=== PATIENT | male | born 1970 | race Caucasian/White ===

== ENCOUNTER 2018-01-08 12:53 | Inpatient (IN) | payer OTHER ==
[2018-01-08 14:25] VITALS: BMI 22.2
--- NOTE | 2018-01-08 14:49 | HP ---
COWS - Scale Resting Pulse: 0= MS 80 or Below Sweatin= Chills/Flushing Restless Observation: 3= Extraneous Movement Pupil Size: 0= Normal to Room Light Bone or Joint Aches: 4=Acute Joint/Muscle Pain Runny Nose/ Eye Tearin= Runny Nose/Eyes GI Upset > 30mins: 3= Vomiting/Diarrhea Tremor Observation: 1= Tremor [place], Not Seen Yawning Observation: 2= >3x During Session Anxiety or Irritability: 2=Irritable/Anxious Goose Flesh Skin: 0=Smooth Skin COWS Score: 18 CIWA Score - CIWA Score Nausea/Vomitin Muscle Tremors: 3 Anxiety: 4-Mod. Anxious/Guarded Agitation: 4-Moderately Restless Paroxysmal Sweats: 1-Minimal Palms Moist Orientation: 0-Oriented Tacttile Disturbances: 3-Moderate Itch/Numb/Burn Auditory Disturbances: 0-None Visual Disturbances: 0-None Headache: 0-None Present CIWA-Ar Total Score: 20 Admission ROS [facility] - HPI Chief Complaint: ALCOHOL AND HEROIN WITHDRAWAL SX Allergies/Adverse Reactions: Allergies Allergy/AdvReac Type Severity Reaction Status Date / Time ibuprofen Allergy Severe Swelling Verified 01/08/18 14:53 History of Present Illness: 47 Y/O H/M WITH A HX OF HEROIN,ALCOHOL,COCAINE AND MARIJUANA DEPENDENCE SEEKING DETOX TX. FIRST TIME HERE BUT PT REPORTS PREVIOUS TX EPISODES. LAST DETOX IN [place]. Exam Limitations: No Limitations - Ebola screening Have you traveled outside of the country in the last 21 days: No Have you had contact with anyone from an Ebola affected area: No Have you been sick,other than usual withdrawal symptoms: No Do you have a fever: No - Review of Systems Constitutional: Chills, Loss of Appetite, Night Sweats, Unintentional Wgt. Loss EENT: reports: Blurred Vision, Tearing, Nose Congestion, Dental Problems ( MISSING TEETH) Respiratory: reports: No Symptoms reported Cardiac: reports: Lightheadedness GI: reports: Constipated, Diarrhea, Nausea, Poor Appetite, Poor Fluid Intake, Vomiting, Abdominal cramping : reports: Dysuria (SOMETIMES) Musculoskeletal: reports: Back Pain, Joint Pain, Muscle Pain Integumentary: reports: No Symptoms Reported Neuro: reports: Headache (HX MIGRAINE HEADACHES), Tremors Endocrine: reports: No Symptoms Reported Hematology: reports: Anemia Psychiatric: reports: Orientated x3, Anxious, Depressed Other Systems: Reviewed and Negative Patient History - Patient Medical History Hx Anemia: Yes (NOT CURRENTLY IN TREATMENT) Hx Asthma: No Hx Cancer: Yes (TREATED FOR CHRONIC LYMPHOCYTIC LEUKEMIA) Hx Cardiac Disorders: No Hx Hypertension: No Hx Hypercholesterolemia: No HX Cerebrovascular Accident: No Hx Seizures: No Hx Diabetes: No Hx Gastrointestinal Disorders: Yes (NO MED--TUMS) Hx Sexually Transmitted Disorders: Yes (GONORRHEA TX AT 18 YRS OLD) Hx Renal Disease (ESRD): No Hx Thyroid Disease: No Hx Human Immunodeficiency Virus (HIV): No (NEGATIVE HX) Hx Hepatitis C: No Hx Depression: Yes Hx Suicide Attempt: No (DENIES PREVIOUS OR PRESENT S/I TODAY) Hx Bipolar Disorder: No Hx Schizophrenia: No - Patient Surgical History Past Surgical History: Yes Hx Neurologic Surgery: No Hx Cataract Extraction: No Hx Cardiac Surgery: No Hx Lung Surgery: No Hx Breast Surgery: No Hx Breast Biopsy: No Hx Abdominal Surgery: Yes (RIGHT INGUINAL HERNIA IN 2013) Hx Appendectomy: No Hx Cholecystectomy: No Hx Genitourinary Surgery: No Hx Orthopedic Surgery: No Anesthesia Reaction: No - PPD History Previous Implant?: Yes Documented Results: Negative w/o proof Implanted On Prior [facility] Admission?: No PPD to be Administered?: Yes - Reproductive History Patient is a Female of Child Bearing Age (11 -55 yrs old): No (MALE) - Smoking Cessation Smoking history: Current every day smoker Have you smoked in the past 12 months: Yes Aproximately how many cigarettes per day: 20 Hx Chewing Tobacco Use: No Initiated information on smoking cessation: Yes 'Breaking Loose' booklet given: 01/08/18 - Substance & Tx. History Hx Alcohol Use: Yes (VODKA/BEER) Hx Substance Use: Yes (HEROIN/COCAINE/MARIJUANA) Substance Use Type: Alcohol, Cocaine, Heroin, Marijuana Hx Substance Use Treatment: Yes ([facility] IN THE PAST;LAST TX IN [place].) - Substances Abused VODKA/BEER Route: Oral Frequency: Daily Amount used: 1 PT VODKA/ 12 24OZ Age of first use: 15 Date of Last Use: 01/07/18 Heroin Route: Inhalation Frequency: Daily Amount used: 10 BAGS Age of first use: 22 Date of Last Use: 01/08/18 Crack/COCAINE Route: Smoking Frequency: Daily Amount used: $100 Age of first use: 17 Date of Last Use: 01/07/18 Marijuana/Hashish Route: Smoking Amount used: 4 BAGS Age of first use: 13 Date of Last Use: 01/07/18 Family Disease History - Family Disease History Family Disease History: Other: Grandparent (DEMENTIA 101 YRS OLD-ALIVE), Father (CA-), Mother (HTN) Admission Physical Exam [facility] - Vital Signs Vital Signs: Vital Signs - 24 hr 01/08/18 14:23 Temperature 98.1 F Pulse Rate 70 Respiratory 18 Rate Blood Pressure 131/76 - Physical General Appearance: Yes: Moderate Distress, Irritable, Anxious, Other (RESTLESS/ IRRITABILITY) HEENTM: Yes: EOMI, Normocephalic, BRANDI, Pharynx Normal Respiratory: Yes: Chest Non-Tender, Lungs Clear, Normal Breath Sounds, No Respiratory Distress Neck: Yes: No masses,lesions,Nodules, Supple, Trachea in good position Breast: Yes: Breast Exam Deferred Cardiology: Yes: Regular Rhythm, Regular Rate, S1, S2 Abdominal: Yes: Normal Bowel Sounds, Non Tender, Flat, Soft Genitourinary: Yes: Other (N/C) Back: Yes: Within Normal Limits Musculoskeletal: Yes: full range of Motion, Gait Steady, Back pain Extremities: Yes: Other Neurological: Yes: emts II-XII NML intact, Fully Oriented, Alert Integumentary: Yes: Within Normal Limits Lymphatic: Yes: Within Normal Limits - Diagnostic (1) Opioid dependence with withdrawal Current Visit: Yes Status: Acute (2) Alcohol dependence with uncomplicated withdrawal Current Visit: Yes Status: Acute (3) Cocaine dependence, uncomplicated Current Visit: Yes Status: Acute (4) Cannabis dependence, uncomplicated Current Visit: Yes Status: Acute (5) History of chronic lymphoid leukemia in remission Current Visit: Yes Status: Chronic (6) GERD (gastroesophageal reflux disease) Current Visit: Yes Status: Acute Qualifiers: Esophagitis presence: esophagitis presence not specified Qualified Code(s) : K21.9 - Gastro-esophageal reflux disease without esophagitis (7) History of anemia Current Visit: Yes Status: Chronic Cleared for Admission S - Detox or Rehab [facility] Level of Care: Medically Managed Detox Regimen/Protocol: Methadone/Librium S Breath Alcohol Content Breath Alcohol Content: 0 Urine Drug Screen - Results Drug Screen Negative: No Urine Drug Screen Results: THC-Marijuana, REMA-Cocaine, OPI-Opiates, OXY- Oxycodone
[2018-01-08] MEDS ORDERED: guaiFENesin/D-METHORPHAN HB 10 ML UNIT-DOSE CUPS PO PRN (15:16)
[2018-01-08] MEDS ORDERED: chlordiazePOXIDE HCL 25 MG CAPSULE PO PRN (15:16)
[2018-01-08] MEDS ORDERED: ACETAMINOPHEN 325 MG TABLET (FP) PO PRN (15:16)
[2018-01-08] MEDS ORDERED: LOPERAMIDE HCL 2 MG CAPSULE PO PRN (15:16)
[2018-01-08] MEDS ORDERED: NICOTINE POLACRILEX 4 MG GUM BC PRN (15:16)
[2018-01-08] MEDS ORDERED: MAGNESIUM HYDROX 2400MG/30ML ORAL SUSPENSION 30 ML CUP PO PRN (15:16)
[2018-01-08] MEDS ORDERED: MAGNESIUM CITRATE 300 ML BOTTLE PO PRN (15:16)
[2018-01-08] MEDS ORDERED: MENTHOL/PHENOL 1 EACH UD MM PRN (15:16)
[2018-01-08] MEDS ORDERED: MAG HYDROX/AL HYDROX/SIMETH 30 ML UNIT-DOSE CUP PO PRN (15:16)
[2018-01-08] MEDS ORDERED: P-EPHED 60MG/TRIPROLIDI 2.5MG TABLET PO PRN (15:16)
[2018-01-08] MEDS ORDERED: METHADONE HCL 10 MG TABLET (FOR DETOX USE ONLY) PO ONE ×2 (17:30→23:00)
[2018-01-08] MEDS: chlordiazePOXIDE HCL 25 MG CAPSULE PO SCH ×2 (18:50→22:23)
[2018-01-08] MEDS: LIDOCAINE 5% TOPICAL PATCH TP SCH (18:50)
[2018-01-08] MEDS: NICOTINE 21 MG/24 HOURS TOPICAL PATCH TD SCH (18:51)
[2018-01-08] MEDS: THIAMINE HCL 100 MG TABLET (FP) PO SCH (22:22)
[2018-01-08] MEDS: LIDOCAINE PATCH REMOVAL MC SCH (22:22)
[2018-01-08 23:00] LABS: URINE APPEARANCE CLEAR; URINE BILIRUBIN NEGATIVE (NEGATIVE); URINE BLOOD 1+ (NEGATIVE); URINE COLOR YELLOW; URINE GLUCOSE (UA) NEGATIVE (NEGATIVE); URINE KETONE NEGATIVE (NEGATIVE); URINE LEUK ESTERASE NEGATIVE (NEGATIVE); URINE NITRITE NEGATIVE (NEGATIVE); URINE PROTEIN NEGATIVE (NEGATIVE); URINE UROBILINOGEN NEGATIVE mg/dL (0.2-1.0)
[2018-01-08 23:22] LABS: URINE MUCUS RARE
[2018-01-09] MEDS: chlordiazePOXIDE HCL 25 MG CAPSULE PO SCH ×4 (05:41→22:15)
[2018-01-09] MEDS ORDERED: METHADONE HCL 10 MG TABLET (FOR DETOX USE ONLY) PO SCH (10:00)
--- NOTE | 2018-01-09 10:01 | PN ---
S CIWA - CIWA Score Nausea/Vomitin-No Nausea/No Vomiting Muscle Tremors: 4-Moderate,w/Arms Extend Anxiety: 4-Mod. Anxious/Guarded Agitation: 4-Moderately Restless Paroxysmal Sweats: 1-Minimal Palms Moist Orientation: 0-Oriented Tacttile Disturbances: 3-Moderate Itch/Numb/Burn Auditory Disturbances: 0-None Visual Disturbances: 0-None Headache: 0-None Present CIWA-Ar Total Score: 16 [facility] COWS - Scale Resting Pulse: 0= [place] 80 or Below Sweatin= Chills/Flushing Restless Observation: 3= Extraneous Movement Pupil Size: 0= Normal to Room Light Bone or Joint Aches: 4=Acute Joint/Muscle Pain Runny Nose/ Eye Tearin= Nasal Congestion GI Upset > 30mins: 1= Stomach Cramp Tremor Observation of Outstretched Hands: 1= Tremor [place], Not Seen Yawning Observation: 1= 1-2x During Session Anxiety or Irritability: 2=Irritable/Anxious Goose Flesh Skin: 0=Smooth Skin COWS Score: 14 S Progress Note (SOAP) Subjective: ANXIETY,SWEATS/CHILLS,SLIGHT TREMORS. PT C/O PAIN TO LEFT ANKLE/HEEL AND RIGHT HAND STATING HE INJURED THEM WHILE PLAYING BASKET BALL 2 DAYS AGO AND NEVER WENT TO THE ER BECAUSE "I WAS BUSY GETTING HIGH". PT WAS ADMITTED YESTERDAY AND DID NOT DISCLOSE THIS IN HIS ADMISSION INTERVIEW UNTIL THIS MORNING IN [place]. PT SAYS HE FORGOT TO MENTION IT YESTERDAY. Objective: 01/09/18 10:01 Vital Signs Temperature 97.0 F L 01/09/18 06:42 Pulse Rate 65 01/09/18 06:42 Respiratory Rate 18 01/09/18 06:42 Blood Pressure 118/75 01/09/18 06:42 O2 Sat by Pulse Oximetry (%) Laboratory Last Values Urine Color Yellow 01/08/18 20:00 Urine Appearance Clear 01/08/18 20:00 Urine pH 6.0 (5.0-8.0) 01/08/18 20:00 Ur Specific [place] 1.023 (1.001-1.035) 01/08/18 20:00 Urine Protein Negative (NEGATIVE) 01/08/18 20:00 Urine Glucose (UA) Negative (NEGATIVE) 01/08/18 20:00 Urine Ketones Negative (NEGATIVE) 01/08/18 20:00 Urine Blood 1+ (NEGATIVE) H 01/08/18 20:00 Urine Nitrite Negative (NEGATIVE) 01/08/18 20:00 Urine Bilirubin Negative (NEGATIVE) 01/08/18 20:00 Urine Urobilinogen Negative mg/dL (0.2-1.0) 01/08/18 20:00 Ur Leukocyte Esterase Negative (NEGATIVE) 01/08/18 20:00 Urine WBC (Auto) <1 /hpf (3-5) 01/08/18 20:00 Urine RBC (Auto) 14 /hpf (0-3) 01/08/18 20:00 Urine Mucus Rare 01/08/18 20:00 OTHER LABS PENDING LEFT SMALL FINGER SELLING AND REDNESS NOTED SLIGHT SWELLING TO DORSAL ASPECT OF LEFT FOOT Assessment: 01/09/18 10:02 WITHDRAWAL SX Plan: CONTINUE DETOX XRAY LEFT HAND/WRIST TODAY XRAY LEFT ANKLE/FOOT TODAY R/O FRACTURE
[2018-01-09] MEDS: PRENATAL VITAMINS W/ FOLIC ACID TABLET (FP) PO SCH (10:20)
[2018-01-09 10:21] LABS: HEMOGLOBIN 11.6 GM/dL (11.7-16.9); MCH 30.9 pg (25.7-33.7); MCHC 32.2 g/dl (32.0-35.9); MEAN CELL VOLUME 96.2 fl (80-96); MEAN PLT VOLUME 9.2 fl (7.5-11.1); PLATELET COUNT 229 K/MM3 (134-434); RBC 3.74 M/mm3 (4.00-5.60)
[2018-01-09] MEDS: LIDOCAINE 5% TOPICAL PATCH TP SCH (10:23)
[2018-01-09] MEDS: NICOTINE 21 MG/24 HOURS TOPICAL PATCH TD SCH (10:23)
[2018-01-09 10:30] LABS: WHITE BLOOD COUNT 61.8 K/mm3 (4.0-10.0)
[2018-01-09 11:01] LABS: ALBUMIN 3.1 g/dl (3.4-5.0); CHLORIDE 109 mmol/L (98-107); POTASSIUM 4.4 mmol/L (3.5-5.1); SODIUM 143 mmol/L (136-145)
[2018-01-09 11:09] LABS: ALK PHOS 75 U/L (45-117); ANION GAP 5 (8-16); BILIRUBIN,TOTAL 0.4 mg/dL (0.2-1.0); BLOOD UREA NITROGEN 21 mg/dL (7-18); CO2 29 mmol/L (21-32); CREATININE 0.9 mg/dL (0.7-1.3); GLUCOSE,RANDOM 90 mg/dL (74-106); SGOT/AST 16 U/L (15-37); SGPT/ALT 16 U/L (12-78); TOT PROT 5.5 g/dl (6.4-8.2)
--- NOTE | 2018-01-09 11:43 | EKG ---
Test Reason : Blood Pressure : / mmHG Vent. Rate : 062 BPM Atrial Rate : 062 BPM P-R Int : 136 ms QRS Dur : 088 ms QT Int : 404 ms P-R-T Axes : 063 032 049 degrees QTc Int : 410 ms NORMAL SINUS RHYTHM WITH SINUS ARRHYTHMIA VOLTAGE CRITERIA FOR LEFT VENTRICULAR HYPERTROPHY ABNORMAL ECG NO PREVIOUS ECGS AVAILABLE Confirmed by CYRUS RUDD MD ([id number]) on 01/09/2018 11:43:16 AM Referred By: Confirmed By:CYRUS RUDD MD
--- NOTE | 2018-01-09 14:43 | CONSULT ---
[facility] Psychiatric Consult - Data Date of interview: 01/09/18 Admission source: [facility] Identifying data: Pt. is a 47 year old year old single male, father of four, unemployed and homeless. This is patient's first admission to [facility]. Pt. admitted to for alcohol, opiate, crack, and cannabis dependence. Substance Abuse History: Following information confirmed with Mr. William: Smoking Cessation. Smoking history: Current every day smoker. Have you smoked in the past 12 months: Yes. Aproximately how many cigarettes per day: 20. Hx Chewing Tobacco Use: No. Initiated information on smoking cessation: Yes. ' Breaking Loose' booklet given: 01/08/18. - Substance & Tx. History. Hx Alcohol Use: Yes (VODKA/BEER). Hx Substance Use: Yes (HEROIN/COCAINE/MARIJUANA) . Substance Use Type: Alcohol, Cocaine, Heroin, Marijuana. Hx Substance Use Treatment: Yes ([facility] IN THE PAST;LAST TX IN [place].). - Substances Abused. VODKA/BEER. Route: Oral. Frequency: Daily. Amount used: 1 PT VODKA/ 12 24OZ. Age of first use: 15. Date of Last Use: 01/07/18. Heroin. Route: Inhalation. Frequency: Daily. Amount used: 10 BAGS. Age of first use: 22. Date of Last Use: 01/08/18. Crack/COCAINE. Route: Smoking. Frequency: Daily. Amount used: $100. Age of first use: 17. Date of Last Use : 01/07/18. Marijuana/Hashish. Route: Smoking. Amount used: 4 BAGS. Age of first use: 13. Date of Last Use: 01/07/18 Medical History: Anemia, Treated for chronic lymphocytic leukemia, right inguinal hernia in 2013. Psychiatric History: Report no psychiatric hospitalizations. Pt. reports seeing an a psychiatrist at [facility] outpatient clinic five years ago and claims to have been diagnosed with "clinical depression." Reports being prescribed gabapentin ( no other medication mentioned). Denies taking any medications psychotrophic medications in five years. Pt. denies h/o suicide attempts. Physical/Sexual Abuse/Trauma History: Denies. Mental Status Exam - Mental Status Exam Alert and Oriented to: Time, Place, Person Cognitive Function: Good Patient Appearance: Unkempt Mood: Withdrawn Affect: Mood Congruent Patient Behavior: Fatigued, Cooperative Speech Pattern: Delayed Voice Loudness: Moderately Soft/Quiet Thought Process: Goal Oriented Thought Disorder: Not Present Hallucinations: Denies Suicidal Ideation: Denies Homicidal Ideation: Denies Insight/Judgement: Poor Sleep: Fair Appetite: Fair Muscle strength/Tone: Normal Gait/Station: Other (Did not observe patient's gait.) Psychiatric Findings - Problem List ([place] 1, 2,3) (1) Drug-induced mood disorder Current Visit: No Status: Suspected (2) Alcohol dependence with uncomplicated withdrawal Current Visit: Yes Status: Acute (3) Cannabis dependence, uncomplicated Current Visit: Yes Status: Acute (4) Cocaine dependence, uncomplicated Current Visit: Yes Status: Acute (5) Opioid dependence with withdrawal Current Visit: Yes Status: Acute - Initial Treatment Plan Initial Treatment Plan: Psychoeducation provided. Detoxification in progress. Observation.
[2018-01-09] MEDS: LIDOCAINE PATCH REMOVAL MC SCH (22:15)
[2018-01-09] MEDS: THIAMINE HCL 100 MG TABLET (FP) PO SCH (22:15)
[2018-01-10] MEDS: chlordiazePOXIDE HCL 25 MG CAPSULE PO SCH ×2 (05:24→10:12)
[2018-01-10] MEDS: METHADONE HCL 5 MG TABLET (FOR DETOX USE ONLY) PO SCH (10:12)
[2018-01-10] MEDS: PRENATAL VITAMINS W/ FOLIC ACID TABLET (FP) PO SCH (10:12)
[2018-01-10] MEDS: LIDOCAINE 5% TOPICAL PATCH TP SCH (10:13)
[2018-01-10] MEDS: NICOTINE 21 MG/24 HOURS TOPICAL PATCH TD SCH (10:13)
--- NOTE | 2018-01-10 10:37 | PN ---
[facility] CIWA - CIWA Score Nausea/Vomitin-No Nausea/No Vomiting Muscle Tremors: 4-Moderate,w/Arms Extend Anxiety: 4-Mod. Anxious/Guarded Agitation: 4-Moderately Restless Paroxysmal Sweats: 1-Minimal Palms Moist Orientation: 0-Oriented Tacttile Disturbances: 3-Moderate Itch/Numb/Burn Auditory Disturbances: 0-None Visual Disturbances: 0-None Headache: 0-None Present CIWA-Ar Total Score: 16 S COWS - Scale Resting Pulse: 1= [place] 81-100 Sweatin= Chills/Flushing Restless Observation: 3= Extraneous Movement Pupil Size: 0= Normal to Room Light Bone or Joint Aches: 4=Acute Joint/Muscle Pain Runny Nose/ Eye Tearin= None GI Upset > 30mins: 0= None Tremor Observation of Outstretched Hands: 1= Tremor [place], Not Seen Yawning Observation: 1= 1-2x During Session Anxiety or Irritability: 2=Irritable/Anxious Goose Flesh Skin: 0=Smooth Skin COWS Score: 13 [facility] Progress Note (SOAP) Subjective: ANXIETY,SWEATS. OOB WITH STEADY GAIT. NO ACUTE DISTRESS. Objective: 01/10/18 10:34 Vital Signs Temperature 96.1 F L 01/10/18 09:33 Pulse Rate 81 01/10/18 09:33 Respiratory Rate 20 01/10/18 09:33 Blood Pressure 135/88 01/10/18 09:33 O2 Sat by Pulse Oximetry (%) Laboratory Last Values WBC 61.8 K/mm3 (4.0-10.0) H* 01/09/18 07:30 RBC 3.74 M/mm3 (4.00-5.60) L 01/09/18 07:30 Hgb 11.6 GM/dL (11.7-16.9) L 01/09/18 07:30 Hct 36.0 % (35.4-49) 01/09/18 07:30 MCV 96.2 fl (80-96) H 01/09/18 07:30 MCH 30.9 pg (25.7-33.7) 01/09/18 07:30 MCHC 32.2 g/dl (32.0-35.9) 01/09/18 07:30 RDW 15.0 % (11.9-15.9) 01/09/18 07:30 Plt Count 229 K/MM3 (134-434) 01/09/18 07:30 MPV 9.2 fl (7.5-11.1) 01/09/18 07:30 Sodium 143 mmol/L (136-145) 01/09/18 07:30 Potassium 4.4 mmol/L (3.5-5.1) 01/09/18 07:30 Chloride 109 mmol/L (98-107) H 01/09/18 07:30 Carbon Dioxide 29 mmol/L (21-32) 01/09/18 07:30 Anion Gap 5 (8-16) L 01/09/18 07:30 BUN 21 mg/dL (7-18) H 01/09/18 07:30 Creatinine 0.9 mg/dL (0.7-1.3) 01/09/18 07:30 Creat Clearance w eGFR > 60 (>60) 01/09/18 07:30 Random Glucose 90 mg/dL (74-106) 01/09/18 07:30 Calcium 8.0 mg/dL (8.5-10.1) L 01/09/18 07:30 Total Bilirubin 0.4 mg/dL (0.2-1.0) 01/09/18 07:30 AST 16 U/L (15-37) 01/09/18 07:30 ALT 16 U/L (12-78) 01/09/18 07:30 Alkaline Phosphatase 75 U/L (45-117) 01/09/18 07:30 Total Protein 5.5 g/dl (6.4-8.2) L 01/09/18 07:30 Albumin 3.1 g/dl (3.4-5.0) L 01/09/18 07:30 Urine Color Yellow 01/08/18 20:00 Urine Appearance Clear 01/08/18 20:00 Urine pH 6.0 (5.0-8.0) 01/08/18 20:00 Ur Specific [place] 1.023 (1.001-1.035) 01/08/18 20:00 Urine Protein Negative (NEGATIVE) 01/08/18 20:00 Urine Glucose (UA) Negative (NEGATIVE) 01/08/18 20:00 Urine Ketones Negative (NEGATIVE) 01/08/18 20:00 Urine Blood 1+ (NEGATIVE) H 01/08/18 20:00 Urine Nitrite Negative (NEGATIVE) 01/08/18 20:00 Urine Bilirubin Negative (NEGATIVE) 01/08/18 20:00 Urine Urobilinogen Negative mg/dL (0.2-1.0) 01/08/18 20:00 Ur Leukocyte Esterase Negative (NEGATIVE) 01/08/18 20:00 Urine WBC (Auto) <1 /hpf (3-5) 01/08/18 20:00 Urine RBC (Auto) 14 /hpf (0-3) 01/08/18 20:00 Urine Mucus Rare 01/08/18 20:00 RPR Titer Nonreactive (NONREACTIVE) 01/09/18 07:30 WBC VALUE NOTED. PT HAS A HX OF CLL. UNDER HIS DOCTOR'S CARE. WILL FOLLOW UP WITH HIS MEDICAL APPOINTMENTS NEEDED AFTER DETOX. XRAY LEFT FOOT/ANKLE NO ACUTE PATHOLOGY. XRAY LEFT HAND/WRIST WITH LEFT FIFTH DIGIT PROXIMAL PHALANX FRACTURE COPY OF RESULT GIVEN TO PATIENTTO FOLLOW UP WITH HIS PMD. Assessment: 01/10/18 10:37 WITHDRAWAL SX Plan: CONTINUE DETOX FINGER SPLINT ORDERED FOR APPLICATION TO LEFT SMALL FINGER.
[2018-01-10] MEDS: chlordiazePOXIDE 5 MG CAPSULE PO SCH ×2 (17:24→22:06)
[2018-01-10] MEDS: THIAMINE HCL 100 MG TABLET (FP) PO SCH (22:06)
[2018-01-10] MEDS: CYCLOBENZAPRINE HCL 10 MG TABLET (FP) PO PRN (22:06)
[2018-01-10] MEDS: LIDOCAINE PATCH REMOVAL MC SCH (22:08)
[2018-01-11] MEDS: chlordiazePOXIDE 5 MG CAPSULE PO SCH ×2 (05:30→10:31)
[2018-01-11] MEDS: NICOTINE 21 MG/24 HOURS TOPICAL PATCH TD SCH (10:31)
[2018-01-11] MEDS: LIDOCAINE 5% TOPICAL PATCH TP SCH (10:31)
[2018-01-11] MEDS: PRENATAL VITAMINS W/ FOLIC ACID TABLET (FP) PO SCH (10:31)
[2018-01-11] MEDS: METHADONE HCL 5 MG TABLET (FOR DETOX USE ONLY) PO SCH (10:31)
--- NOTE | 2018-01-11 15:20 | PN ---
[facility] Progress Note (SOAP) Subjective: Tremors, Fatigue, Body Aches, Sweating. Objective: PATIENT A & O X 2 (UNCERTAIN ABOUT CURRENT DAY/ DATE). PATIENT OBSERVED AMBULATING ON UNIT. NO ACUTE DISTRESS. 01/11/18 15:16 Vital Signs Temperature 98.7 F 01/11/18 13:56 Pulse Rate 91 H 01/11/18 13:56 Respiratory Rate 20 01/11/18 13:56 Blood Pressure 118/80 01/11/18 13:56 O2 Sat by Pulse Oximetry (%) Laboratory Tests 01/08/18 01/09/18 01/09/18 20:00 07:30 07:30 WBC 61.8 H* RBC 3.74 L Hgb 11.6 L Hct 36.0 MCV 96.2 H MCH 30.9 MCHC 32.2 RDW 15.0 Plt Count 229 MPV 9.2 Sodium 143 Potassium 4.4 Chloride 109 H Carbon Dioxide 29 Anion Gap 5 L BUN 21 H Creatinine 0.9 Creat Clearance w eGFR > 60 Random Glucose 90 Calcium 8.0 L Total Bilirubin 0.4 AST 16 ALT 16 Alkaline Phosphatase 75 Total Protein 5.5 L Albumin 3.1 L Urine Color Yellow Urine Appearance Clear Urine pH 6.0 Ur Specific [place] 1.023 Urine Protein Negative Urine Glucose (UA) Negative Urine Ketones Negative Urine Blood 1+ H Urine Nitrite Negative Urine Bilirubin Negative Urine Urobilinogen Negative Ur Leukocyte Esterase Negative Urine WBC (Auto) <1 Urine RBC (Auto) 14 Urine Mucus Rare RPR Titer 01/09/18 07:30 WBC RBC Hgb Hct MCV MCH MCHC RDW Plt Count MPV Sodium Potassium Chloride Carbon Dioxide Anion Gap BUN Creatinine Creat Clearance w eGFR Random Glucose Calcium Total Bilirubin AST ALT Alkaline Phosphatase Total Protein Albumin Urine Color Urine Appearance Urine pH Ur Specific [place] Urine Protein Urine Glucose (UA) Urine Ketones Urine Blood Urine Nitrite Urine Bilirubin Urine Urobilinogen Ur Leukocyte Esterase Urine WBC (Auto) Urine RBC (Auto) Urine Mucus RPR Titer Nonreactive LABS NOTED. PATIENT HAS HISTORY OF CHRONIC LYMPHOID LEUKEMIA. 01/11/18 15:20 Assessment: 01/11/18 15:16 WITHDRAWAL SYMPTOMS. Plan: CONTINUE DETOX. PATIENT REPORTS THAT FINGER SPLINT THAT HE IS CURRENTLY USING FOR FRACTURED PINKY FINGER OF LEFT HAND IS NOT BENEFICIAL AND IS CAUSING HIM DISCOMFORT. ZAHIRA TAPE OF PINKY FINGER TO RING FINGER ORDERED. PATIENT ALSO ADVISED TO KEEP LEFT HAND ELEVATED WHEN LYING IN BED AND TO INTERMITTENTLY APPLY ICE TO AFFECTED AREA WHEN POSSIBLE. PATIENT ALSO ADVISED TO FOLLOW-UP WITH [facility] DR. LOWERY ([place] AFTER DISCHARGE FROM DETOX FOR FURTHER EVALUATION OF FINGER FRACTURE.
[2018-01-11] MEDS: chlordiazePOXIDE HCL 10 MG CAPSULE PO SCH ×2 (17:43→22:04)
[2018-01-11] MEDS: CYCLOBENZAPRINE HCL 10 MG TABLET (FP) PO PRN (19:54)
[2018-01-11] MEDS: THIAMINE HCL 100 MG TABLET (FP) PO SCH (22:05)
[2018-01-11] MEDS: LIDOCAINE PATCH REMOVAL MC SCH (23:06)
[2018-01-12] MEDS: chlordiazePOXIDE HCL 10 MG CAPSULE PO SCH ×2 (05:04→10:35)
[2018-01-12] MEDS ORDERED: METHADONE HCL 10 MG TABLET (FOR DETOX USE ONLY) PO SCH (10:00)
[2018-01-12] MEDS: PRENATAL VITAMINS W/ FOLIC ACID TABLET (FP) PO SCH (10:34)
[2018-01-12] MEDS: LIDOCAINE 5% TOPICAL PATCH TP SCH (10:35)
[2018-01-12] MEDS: NICOTINE 21 MG/24 HOURS TOPICAL PATCH TD SCH (10:35)
--- NOTE | 2018-01-12 15:31 | PN ---
[facility] Progress Note (SOAP) Subjective: Tremor, sweating, anxious Objective: 01/12/18 15:25 Last Vital Signs Temp Pulse Resp BP Pulse Ox 95.1 F L 82 20 129/87 01/12/18 14:14 01/12/18 14:14 01/12/18 14:14 01/12/18 14:14 Laboratory Tests 01/08/18 01/09/18 01/09/18 20:00 07:30 07:30 WBC 61.8 H* RBC 3.74 L Hgb 11.6 L Hct 36.0 MCV 96.2 H MCH 30.9 MCHC 32.2 RDW 15.0 Plt Count 229 MPV 9.2 Sodium 143 Potassium 4.4 Chloride 109 H Carbon Dioxide 29 Anion Gap 5 L BUN 21 H Creatinine 0.9 Creat Clearance w eGFR > 60 Random Glucose 90 Calcium 8.0 L Total Bilirubin 0.4 AST 16 ALT 16 Alkaline Phosphatase 75 Total Protein 5.5 L Albumin 3.1 L Urine Color Yellow Urine Appearance Clear Urine pH 6.0 Ur Specific [place] 1.023 Urine Protein Negative Urine Glucose (UA) Negative Urine Ketones Negative Urine Blood 1+ H Urine Nitrite Negative Urine Bilirubin Negative Urine Urobilinogen Negative Ur Leukocyte Esterase Negative Urine WBC (Auto) <1 Urine RBC (Auto) 14 Urine Mucus Rare RPR Titer 01/09/18 07:30 WBC RBC Hgb Hct MCV MCH MCHC RDW Plt Count MPV Sodium Potassium Chloride Carbon Dioxide Anion Gap BUN Creatinine Creat Clearance w eGFR Random Glucose Calcium Total Bilirubin AST ALT Alkaline Phosphatase Total Protein Albumin Urine Color Urine Appearance Urine pH Ur Specific [place] Urine Protein Urine Glucose (UA) Urine Ketones Urine Blood Urine Nitrite Urine Bilirubin Urine Urobilinogen Ur Leukocyte Esterase Urine WBC (Auto) Urine RBC (Auto) Urine Mucus RPR Titer Nonreactive Labs noted: wbc 61.8, bun 21, UA shows microscopic hematuria Assessment: 01/12/18 15:28 Withdrawal symptoms Noted with leukocytosis, azotemia and microscopic hematuria Plan: Continue detox Leukocytosis: history of chronic leukocytosis as per chart, patient is asymptomatic for infection, will repeat wbc, follow up with your PCP within 1 week post discharge Azotemia: encouraged to drink lots of water Microscopic hematuria: encouraged to drink more water, repeat UA
[2018-01-12] MEDS: THIAMINE HCL 100 MG TABLET (FP) PO SCH (21:46)
[2018-01-12] MEDS: CYCLOBENZAPRINE HCL 10 MG TABLET (FP) PO PRN (21:47)
[2018-01-12] MEDS: LIDOCAINE PATCH REMOVAL MC SCH (22:51)
[2018-01-13] MEDS ORDERED: METHADONE HCL 5 MG TABLET (FOR DETOX USE ONLY) PO SCH (06:00)
[2018-01-13 06:45] VITALS: BP 114/81; PULSE 85; TEMP 96.3
[2018-01-13 10:15] LABS: URINE APPEARANCE CLEAR; URINE BILIRUBIN NEGATIVE (NEGATIVE); URINE BLOOD NEGATIVE (NEGATIVE); URINE COLOR LTYELLOW; URINE GLUCOSE (UA) NEGATIVE (NEGATIVE); URINE KETONE NEGATIVE (NEGATIVE); URINE LEUK ESTERASE NEGATIVE (NEGATIVE); URINE NITRITE NEGATIVE (NEGATIVE); URINE PROTEIN NEGATIVE (NEGATIVE); URINE UROBILINOGEN NEGATIVE mg/dL (0.2-1.0)
[2018-01-13 10:23] LABS: HEMATOCRIT 37.3 % (35.4-49); HEMOGLOBIN 12.2 GM/dL (11.7-16.9); MCH 30.6 pg (25.7-33.7); MCHC 32.7 g/dl (32.0-35.9); MEAN CELL VOLUME 93.6 fl (80-96); MEAN PLT VOLUME 9.1 fl (7.5-11.1); PLATELET COUNT 248 K/MM3 (134-434); RBC 3.99 M/mm3 (4.00-5.60)
[2018-01-13 11:16] LABS: WHITE BLOOD COUNT 43.2 K/mm3 (4.0-10.0)
--- NOTE | 2018-01-13 11:16 | DS ---
[facility] Detox Discharge Summary Admission Date: 01/08/18 Discharge Date: 01/13/18 - History Additional Comments: Pt is A & O x 3, completed and tolerated detox; will f/u with his PMD Pertinent Past History: History of leukemia GERD History of anemia - Physical Exam Results Vital Signs: Vital Signs Temperature 96.3 F L 01/13/18 06:45 Pulse Rate 85 01/13/18 06:45 Respiratory Rate 18 01/13/18 06:45 Blood Pressure 114/81 01/13/18 06:45 O2 Sat by Pulse Oximetry (%) Laboratory Last Values Pertinent Admission Physical Exam Findings: Withdrawal sx WBC 43.2 K/mm3 (4.0-10.0) H* D 01/13/18 07:00 RBC 3.99 M/mm3 (4.00-5.60) L 01/13/18 07:00 Hgb 12.2 GM/dL (11.7-16.9) 01/13/18 07:00 Hct 37.3 % (35.4-49) 01/13/18 07:00 MCV 93.6 fl (80-96) 01/13/18 07:00 MCH 30.6 pg (25.7-33.7) 01/13/18 07:00 MCHC 32.7 g/dl (32.0-35.9) 01/13/18 07:00 RDW 15.0 % (11.9-15.9) 01/13/18 07:00 Plt Count 248 K/MM3 (134-434) 01/13/18 07:00 MPV 9.1 fl (7.5-11.1) 01/13/18 07:00 Neutrophils % No Result Required. 01/13/18 07:00 Lymphocytes % No Result Required. 01/13/18 07:00 Sodium 143 mmol/L (136-145) 01/09/18 07:30 Potassium 4.4 mmol/L (3.5-5.1) 01/09/18 07:30 Chloride 109 mmol/L (98-107) H 01/09/18 07:30 Carbon Dioxide 29 mmol/L (21-32) 01/09/18 07:30 Anion Gap 5 (8-16) L 01/09/18 07:30 BUN 21 mg/dL (7-18) H 01/09/18 07:30 Creatinine 0.9 mg/dL (0.7-1.3) 01/09/18 07:30 Creat Clearance w eGFR > 60 (>60) 01/09/18 07:30 Random Glucose 90 mg/dL (74-106) 01/09/18 07:30 Calcium 8.0 mg/dL (8.5-10.1) L 01/09/18 07:30 Total Bilirubin 0.4 mg/dL (0.2-1.0) 01/09/18 07:30 AST 16 U/L (15-37) 01/09/18 07:30 ALT 16 U/L (12-78) 01/09/18 07:30 Alkaline Phosphatase 75 U/L (45-117) 01/09/18 07:30 Total Protein 5.5 g/dl (6.4-8.2) L 01/09/18 07:30 Albumin 3.1 g/dl (3.4-5.0) L 01/09/18 07:30 Urine Color Ltyellow 01/13/18 07:00 Urine Appearance Clear 01/13/18 07:00 Urine pH 7.0 (5.0-8.0) 01/13/18 07:00 Ur Specific [place] 1.014 (1.001-1.035) 01/13/18 07:00 Urine Protein Negative (NEGATIVE) 01/13/18 07:00 Urine Glucose (UA) Negative (NEGATIVE) 01/13/18 07:00 Urine Ketones Negative (NEGATIVE) 01/13/18 07:00 Urine Blood Negative (NEGATIVE) 01/13/18 07:00 Urine Nitrite Negative (NEGATIVE) 01/13/18 07:00 Urine Bilirubin Negative (NEGATIVE) 01/13/18 07:00 Urine Urobilinogen Negative mg/dL (0.2-1.0) 01/13/18 07:00 Ur Leukocyte Esterase Negative (NEGATIVE) 01/13/18 07:00 Urine WBC (Auto) <1 /hpf (3-5) 01/08/18 20:00 Urine RBC (Auto) 14 /hpf (0-3) 01/08/18 20:00 Urine Mucus Rare 01/08/18 20:00 RPR Titer Nonreactive (NONREACTIVE) 01/09/18 07:30 Labs noted. Pt has hx of leukemia/leukocytosis; in remission. Pt is A & O x 3, asymptomatic, tolerated detox well and will f/u with his PMD - Treatment Patient has Accepted a Rehab Referral to: O/p@ [facility] NA meetings & f/u with PMD - Medication Discharge Medications: Ambulatory Orders NK [No Known Home Medication] 01/08/18 - Diagnosis (1) Alcohol dependence with uncomplicated withdrawal Status: Acute (2) Opioid dependence with withdrawal Status: Acute (3) Cannabis dependence, uncomplicated Status: Chronic (4) Cocaine dependence, uncomplicated Status: Chronic (5) GERD (gastroesophageal reflux disease) Status: Chronic Qualifiers: Esophagitis presence: esophagitis presence not specified Qualified Code(s) : K21.9 - Gastro-esophageal reflux disease without esophagitis (6) History of anemia Status: Chronic (7) History of chronic lymphoid leukemia in remission Status: Chronic (8) Leukocytosis Status: Chronic (9) Drug-induced mood disorder Status: Suspected - AMA Did Patient Leave Against Medical Advice: No
[2018-01-13 12:39] LABS: SMUDGE CELLS FEW
[2018-01-13 12:40] LABS: PLATELET ESTIMATE ADEQUATE
== END 2018-01-13 08:50 | disposition home or self-care (01) | DRG 773 ==
LOC: YASAS 12:53 → Y3N 17:01
PROVIDERS: ADMIT Internal Medicine; ATTEND Internal Medicine
PROC: HZ2ZZZZ Detoxification Services for Substance Abuse Treatment (ICD-10-PCS; principal; 2018-01-08)
DX: F11.23 Opioid dependence with withdrawal (principal); F10.230 Alcohol dependence with withdrawal, uncomplicated; F14.20 Cocaine dependence, uncomplicated; F12.20 Cannabis dependence, uncomplicated; F17.210 Nicotine dependence, cigarettes, uncomplicated; F19.24 Other psychoactive substance dependence with psychoactive substance-induced mood disorder; K21.9 Gastro-esophageal reflux disease without esophagitis; C91.11 Chronic lymphocytic leukemia of B-cell type in remission; D72.829 Elevated white blood cell count, unspecified; D64.9 Anemia, unspecified; R31.29 Other microscopic hematuria; R79.89 Other specified abnormal findings of blood chemistry; S62.617D Displaced fracture of proximal phalanx of left little finger, subsequent encounter for fracture with routine healing; X58.XXXD Exposure to other specified factors, subsequent encounter; Z87.438 Personal history of other diseases of male genital organs
CPT/HCPCS: 36415; 73110-TC-LR-FY; 73130-TC-LR-FY; 73610-TC-LT-FY; 73630-TC-LT; 80053; 81003; 81015; 85025; 85027; 86593; 93005; 93010

== ENCOUNTER 2020-06-26 10:40 | Inpatient (IN) | payer OTHER ==
--- NOTE | 2020-06-26 12:34 | BHS.RME ---
Substance Use & Tx History - Substance Use History Heroin Substance amount: 10 bags of heroin Frequency of use: Daily Substance route: Inhalation (ex: sniffing or snorting) Date of Last Use: 06/25/20 Cocaine-Crack Substance amount: 30$ of crack Frequency of use: Less than 3 times per week Substance route: Smoking Date of Last Use: 06/24/20 Alcohol Substance amount: 3 pinnts of vodka/12 packs of 12 ozs of beer Frequency of use: Daily Substance route: Oral Date of Last Use: 06/24/20 - Last Treatment Date of last treatment: 2015 [facility] Where was last treatment: Detox Physical/Psych/Mental Status - Behavior Eye Contact: Normal - Cooperativeness Cooperativeness: Cooperative - Thinking Thought Processes: Logical Thought content: Future oriented - Physical Health Problems Is patient presently having any pain?: No Does patient presently have any injuries (include location): No Does patient currently have a fever: No COWS - Scale Resting Pulse: 0= [place] 80 or Below Sweatin= Chills/Flushing Restless Observation: 1= Difficult to Sit Still Pupil Size: 1= Pupils >than Normal Bone or Joint Aches: 2= Severe Diffuse Aches Runny Nose/ Eye Tearin= Runny Nose/Eyes GI Upset > 30mins: 2= Nausea/Diarrhea Tremor Observation: 2= Slight Tremor Visible Yawning Observation: 2= >3x During Session Anxiety or Irritability: 2=Irritable/Anxious Goose Flesh Skin: 3=Piloerection COWS Score: 18 CIWA Nausea/Vomitin Muscle Tremors: 3 Anxiety: 3 Agitation: 3 Paroxysmal Sweats: 1-Minimal Palms Moist Orientation: 0-Oriented Tacttile Disturbances: 1-Very Mild Itch/Numbness Auditory Disturbances: 0-None Visual Disturbances: 0-None Headache: 2-Mild CIWA-Ar Total Score: 15
--- NOTE | 2020-06-26 12:42 | HP ---
COWS - Scale Resting Pulse: 0= [place] 80 or Below Sweatin= Chills/Flushing Restless Observation: 1= Difficult to Sit Still Pupil Size: 1= Pupils >than Normal Bone or Joint Aches: 2= Severe Diffuse Aches Runny Nose/ Eye Tearin= Runny Nose/Eyes GI Upset > 30mins: 2= Nausea/Diarrhea Tremor Observation: 2= Slight Tremor Visible Yawning Observation: 2= >3x During Session Anxiety or Irritability: 2=Irritable/Anxious Goose Flesh Skin: 3=Piloerection COWS Score: 18 CIWA Score Nausea/Vomitin Muscle Tremors: 3 Anxiety: 3 Agitation: 3 Paroxysmal Sweats: 1-Minimal Palms Moist Orientation: 0-Oriented Tacttile Disturbances: 1-Very Mild Itch/Numbness Auditory Disturbances: 0-None Visual Disturbances: 0-None Headache: 2-Mild CIWA-Ar Total Score: 15 - Admission Criteria OASAS Guidelines: Admission for Medically Managed Detox: Requires at least one of the followin. CIWA greater than 12 2. Seizures within the past 24 hours 3. Delirium tremens within the past 24 hours 4. Hallucinations within the past 24 hours 5. Acute intervention needed for co occurring medical disorder 6. Acute intervention needed for co occurring psychiatric disorder 7. Severe withdrawal that cannot be handled at a lower level of care (continued vomiting, continued diarrhea, abnormal vital signs) requiring intravenous medication and/or fluids 8. Admitting History and Physical - Admission Chief Complaint: i need help to stop using heroin,suboxone,cocaine,alcohol History of Present Illness: thi 50 years old amle with heroin,alcohol,cocaine dependence seeking detox, on suboxone 8 mgs/2 mgs tid ,i stop showed suboxone 8mg/2 mg last filled 04/12/2020 for 28 days did not want suboxone any more a,stated he did not want suboxone any more History Source: Patient Limitations to Obtaining History: No Limitations - Past Medical History Psych: Yes: Anxiety, Depression Additional Past Medical History: leukemia 2016 ,chronic lymphocytic Leukemia on medication ,on remission, IMBRUVICA 1 tab 420 mgs po daily - Past Surgical History Additional Past Surgical History: right inguinal hernia repair with nesh in 2014 [place] - Smoking History Smoking history: Current every day smoker Have you smoked in the past 12 months: Yes Aproximately how many cigarettes per day: 20 - Alcohol/Substance Use Hx Alcohol Use: Yes (VODKA/BEER) Date of Last Use: 06/24/20 - Social History Usual Living Arrangement: Yes: With Spouse Do you think of yourself as: Straight/Heterosexual ADL: Support Services Occupation: on disability History of Recent Travel: No Other Social History: chronic lymphocytis leukemia since 2016 on IMBRUVICA 420 mgs po daily,. on disabilty,on probation Admission ROS S - HPI Chief Complaint: i need help to stop using heroin,suboxone,alcohol,cocaine Allergies/Adverse Reactions: Allergies Allergy/AdvReac Type Severity Reaction Status Date / Time ibuprofen Allergy Severe Swelling Verified 01/08/18 14:53 History of Present Illness: this 50 years old male with heroin ,alcohol,suboxone,cocaine dependence,seeking help,to stop, last detox in 2015 [facility] seen in [facility] for perianal abscess with spontaneous drainage ,prescribed doxycycline history of chronic lymphocytic leukemia since 2016 on medicatiion longest sobriety 3 years Exam Limitations: No Limitations - Ebola screening Have you traveled outside of the country in the last 21 days: No Have you had contact with anyone from an Ebola affected area: No Have you been sick,other than usual withdrawal symptoms: No Do you have a fever: No - Review of Systems Constitutional: Chills, Loss of Appetite, Malaise, Night Sweats, Changes in sleep EENT: reports: Nose Congestion Respiratory: reports: No Symptoms reported Cardiac: reports: No Symptoms Reported GI: reports: Nausea, Poor Appetite, Abdominal cramping : reports: No Symptoms Reported Musculoskeletal: reports: Back Pain, Muscle Pain Integumentary: reports: Dryness Neuro: reports: Headache, Tremors Endocrine: reports: No Symptoms Reported Hematology: reports: Other (chronic lymphocytic leukemia on med) Psychiatric: reports: No Sypmtoms Reported, Judgement Intact, Mood/Affect Appropiate, Orientated x3, Anxious, Depressed Other Systems: Reviewed and Negative Patient History - Patient Medical History Hx Anemia: Yes (NOT CURRENTLY IN TREATMENT) Hx Asthma: No Hx Chronic Obstructive Pulmonary Disease (COPD): No Hx Cancer: Yes (TREATED FOR CHRONIC LYMPHOCYTIC LEUKEMIA) Hx Cardiac Disorders: No Hx Hypertension: No Hx Hypercholesterolemia: No HX Cerebrovascular Accident: No Hx Seizures: No Hx Diabetes: No Hx Gastrointestinal Disorders: No Hx Genitourinary Disorders: No Hx Sexually Transmitted Disorders: Yes (gonorrhea at age 18) Hx Renal Disease (ESRD): No Hx Thyroid Disease: No Hx Human Immunodeficiency Virus (HIV): No (NEGATIVE HX 2019) Hx Hepatitis C: No Hx Depression: No Hx Suicide Attempt: No Hx Bipolar Disorder: No Hx Schizophrenia: No Other Medical History: no suicidal,no homicidal - Patient Surgical History Past Surgical History: Yes Hx Neurologic Surgery: No Hx Cataract Extraction: No Hx Cardiac Surgery: No Hx Lung Surgery: No Hx Breast Surgery: No Hx Breast Biopsy: No Hx Abdominal Surgery: No Hx Appendectomy: No Hx Cholecystectomy: No Hx Genitourinary Surgery: No Hx Orthopedic Surgery: No Other Surgical History: right inguinal hernia repair in 2013 Anesthesia Reaction: No - PPD History Previous Implant?: Yes Documented Results: Negative w/o proof Date: 01/10/18 PPD to be Administered?: Yes - Smoking Cessation Smoking history: Current every day smoker Have you smoked in the past 12 months: Yes Aproximately how many cigarettes per day: 20 Hx Chewing Tobacco Use: No Initiated information on smoking cessation: Yes 'Breaking Loose' booklet given: 06/26/20 - Substance & Tx. History Hx Alcohol Use: Yes Hx Substance Use: Yes Substance Use Type: Alcohol, Cocaine, Heroin Hx Substance Use Treatment: Yes (2015 [facility] - Substances abused Heroin Substance route: Inhalation Frequency: Daily Amount used: 10 bags Age of first use: 27 Date of last use: 06/25/20 Alcohol Substance route: Oral Frequency: Daily (3pints) Amount used: 3 pints of vodka/12 of 12 ozs of beer Age of first use: 14 Date of last use: 06/24/20 Crack Frequency: 1-2 times per week Amount used: 30$ Age of first use: 20 Date of last use: 06/24/20 Admission Physical Exam BHS - Vital Signs Vital Signs: t97.3,p75,bp 126/82,r18 - Physical General Appearance: Yes: Moderate Distress, Tremorous, Irritable, Sweating, Anxious HEENTM: Yes: Normal ENT Inspection, BRANDI, Pharynx Normal Respiratory: Yes: Within Normal Limits Neck: Yes: Within Normal Limits, Supple, Trachea in good position Breast: Yes: Within Normal Limits Cardiology: Yes: Within Normal Limits, Regular Rhythm, Regular Rate, S1, S2, Surgical Scar Abdominal: Yes: Within Normal Limits, Normal Bowel Sounds, Non Tender, Flat, Soft, Surgical Scar Genitourinary: Yes: Within Normal Limits Back: Yes: Muscle Spasm Musculoskeletal: Yes: Back pain, Muscle Pain Extremities: Yes: Tremors Neurological: Yes: home health care case manager II-XII NML intact, Fully Oriented, Alert, Motor Strength 5/5 Integumentary: Yes: Dry, Other (dreaaing over [place] area) Lymphatic: Yes: Within Normal Limits - Diagnostic (1) Opioid dependence with withdrawal Current Visit: No Status: Acute (2) Weight loss Current Visit: Yes Status: Acute (3) Alcohol dependence with uncomplicated withdrawal Current Visit: No Status: Acute (4) Cocaine dependence, uncomplicated Current Visit: No Status: Chronic (5) History of chronic lymphoid leukemia in remission Current Visit: No Status: Chronic (6) Weight loss Current Visit: Yes Status: Acute (7) Perianal abscess Current Visit: Yes Status: Acute Cleared for Admission S - Detox or Rehab [facility] Level of Care: Medically Managed Detox Regimen/Protocol: Methadone/Librium Inpatient Rehab Admission - Rehab Decision to Admit Inpatient rehab admission?: No
[2020-06-26] MEDS ORDERED: MAGNESIUM CITRATE 300 ML BOTTLE PO PRN (13:11)
[2020-06-26] MEDS ORDERED: ACETAMINOPHEN 325 MG TABLET (FP) PO PRN ×2 (13:11)
[2020-06-26] MEDS ORDERED: chlordiazePOXIDE HCL 25 MG CAPSULE PO PRN (13:11)
[2020-06-26] MEDS ORDERED: NALOXONE HCL 0.4 MG/ML VIAL IM PRN (13:11)
[2020-06-26] MEDS ORDERED: NICOTINE POLACRILEX 2 MG GUM BUC PRN (13:11)
[2020-06-26] MEDS ORDERED: ONDANSETRON *ODT* 4 MG TABLET SL ONE (13:11)
[2020-06-26] MEDS ORDERED: MENTHOL/PHENOL 1 EACH UD MM PRN (13:11)
[2020-06-26] MEDS ORDERED: MAG HYDROX/AL HYDROX/SIMETH 30 ML UNIT-DOSE CUP PO PRN (13:11)
[2020-06-26] MEDS ORDERED: BISMUTH SUBSALICYLATE 524 MG/30 ML UD PO PRN (13:11)
[2020-06-26] MEDS ORDERED: MAGNESIUM HYDROX 2400MG/30ML ORAL SUSPENSION 30 ML CUP PO PRN (13:11)
[2020-06-26] MEDS ORDERED: METHADONE HCL 10 MG TABLET (FOR DETOX USE ONLY) PO ONE (13:11)
[2020-06-26] MEDS ORDERED: cloNIDine HCL 0.1 MG TABLET PO PRN (13:11)
[2020-06-26] MEDS ORDERED: TRIMETHOBENZAMIDE HCL 200MG/2ML INJ IM PRN (13:16)
--- NOTE | 2020-06-26 13:37 | PN ---
S Progress Note Note: patient would like to be on methadone and valium,instead of methdone and librium
[2020-06-26 13:53] VITALS: BMI 22.6
[2020-06-26] MEDS: diazePAM 5 MG TABLET PO PRN (16:01)
[2020-06-26] MEDS: METHOCARBAMOL 500 MG TABLET PO PRN (16:01)
[2020-06-26] MEDS: hydrOXYzine PAMOATE 25 MG CAPSULE (FP) PO SCH ×3 (16:01→22:22)
[2020-06-26] MEDS: NICOTINE 21 MG/24 HOURS TOPICAL PATCH TD SCH (16:03)
[2020-06-26] MEDS ORDERED: chlordiazePOXIDE HCL 25 MG CAPSULE PO SCH (17:00)
[2020-06-26] MEDS: diazePAM 5 MG TABLET PO SCH (22:19)
[2020-06-26] MEDS: MELATONIN 5 MG TABLETS PO SCH (22:19)
[2020-06-26] MEDS: THIAMINE HCL 100 MG TABLET (FP) PO SCH (22:19)
[2020-06-26] MEDS: DOXYCYCLINE HYCLATE 100 MG CAPSULE PO SCH (22:42)
[2020-06-27] MEDS: diazePAM 5 MG TABLET PO SCH ×3 (05:25→21:36)
[2020-06-27] MEDS: hydrOXYzine PAMOATE 25 MG CAPSULE (FP) PO SCH ×5 (05:25→21:37)
[2020-06-27] MEDS ORDERED: METHADONE HCL 10 MG TABLET (FOR DETOX USE ONLY) ONE (09:06)
[2020-06-27] MEDS ORDERED: METHADONE HCL 5 MG TABLET (FOR DETOX USE ONLY) ONE (09:06)
--- NOTE | 2020-06-27 09:19 | EKG ---
Test Reason : Blood Pressure : / mmHG Vent. Rate : 058 BPM Atrial Rate : 058 BPM P-R Int : 162 ms QRS Dur : 108 ms QT Int : 402 ms P-R-T Axes : 058 020 030 degrees QTc Int : 394 ms SINUS BRADYCARDIA MODERATE VOLTAGE CRITERIA FOR LVH, MAY BE NORMAL VARIANT BORDERLINE ECG WHEN COMPARED WITH ECG OF 08-JAN-2018 18:44, NO SIGNIFICANT CHANGE WAS FOUND Confirmed by JESS CHUNG, JOSE JUAN ([id number]) on 06/27/2020 9:18:38 AM Referred By: Confirmed By:JOSE JUAN MERCADO MD
[2020-06-27] MEDS ORDERED: METHADONE (DETOX) 20 MG, METHADONE (DETOX) 5 MG PO ONE (10:00)
[2020-06-27] MEDS: PRENATAL VITAMINS W/ FOLIC ACID TABLET (FP) PO SCH (10:43)
[2020-06-27] MEDS: DOXYCYCLINE HYCLATE 100 MG CAPSULE PO SCH (10:45)
[2020-06-27] MEDS: NICOTINE 21 MG/24 HOURS TOPICAL PATCH TD SCH (10:45)
[2020-06-27 12:14] LABS: HEMATOCRIT 35.4 % (35.4-49); HEMOGLOBIN 11.6 GM/dL (11.7-16.9); MCH 31.1 pg (25.7-33.7); MCHC 32.7 g/dl (32.0-35.9); MEAN CELL VOLUME 95.2 fl (80-96); PLATELET COUNT 109 K/MM3 (134-434); RBC 3.72 M/mm3 (4.00-5.60); RDW 16.4 % (11.9-15.9)
[2020-06-27 12:28] LABS: ALBUMIN 3.5 g/dl (3.4-5.0); BILIRUBIN,TOTAL 0.2 mg/dL (0.2-1); BLOOD UREA NITROGEN 22.4 mg/dL (7-18); CALCIUM 8.9 mg/dL (8.5-10.1); CREATININE 0.9 mg/dL (0.55-1.3); TOT PROT 5.7 g/dl (6.4-8.2)
[2020-06-27 12:36] LABS: WHITE BLOOD COUNT 38.6 K/mm3 (4.0-10.0)
--- NOTE | 2020-06-27 14:22 | PN ---
S CIWA - CIWA Score Nausea/Vomitin-Mild Nausea/No Vomiting Muscle Tremors: 2 Anxiety: 2 Agitation: 2 Paroxysmal Sweats: No Perspiration Orientation: 0-Oriented Tacttile Disturbances: 4-Moderate Hallucinations Auditory Disturbances: 0-None Visual Disturbances: 0-None Headache: 2-Mild CIWA-Ar Total Score: 13 BHS COWS - Scale Resting Pulse: 0= [place] 80 or Below Sweatin= No chills or Flushing Restless Observation: 1= Difficult to Sit Still Pupil Size: 1= Pupils >than Normal Bone or Joint Aches: 2= Severe Diffuse Aches Runny Nose/ Eye Tearin= Nasal Congestion GI Upset > 30mins: 2= Nausea/Diarrhea Tremor Observation of Outstretched Hands: 2= Slight Tremor Visible Yawning Observation: 1= 1-2x During Session Anxiety or Irritability: 2=Irritable/Anxious Goose Flesh Skin: 0=Smooth Skin COWS Score: 12 S Progress Note (SOAP) Subjective: alert,irritable,anxious,tremor,pain in the body and back Objective: 06/27/20 17:53 Vital Signs Temperature 97.1 F L 06/27/20 16:46 Pulse Rate 77 06/27/20 16:46 Respiratory Rate 18 06/27/20 16:46 Blood Pressure 122/87 06/27/20 16:46 O2 Sat by Pulse Oximetry (%) 99 06/27/20 12:58 Laboratory Last Values WBC 38.6 K/mm3 (4.0-10.0) H* 06/27/20 08:15 RBC 3.72 M/mm3 (4.00-5.60) L 06/27/20 08:15 Hgb 11.6 GM/dL (11.7-16.9) L 06/27/20 08:15 Hct 35.4 % (35.4-49) 06/27/20 08:15 MCV 95.2 fl (80-96) 06/27/20 08:15 MCH 31.1 pg (25.7-33.7) 06/27/20 08:15 MCHC 32.7 g/dl (32.0-35.9) 06/27/20 08:15 RDW 16.4 % (11.9-15.9) H 06/27/20 08:15 Plt Count 109 K/MM3 (134-434) L D 06/27/20 08:15 MPV 10.0 fl (7.5-11.1) 06/27/20 08:15 Sodium 143 mmol/L (136-145) 06/27/20 08:15 Potassium 5.0 mmol/L (3.5-5.1) 06/27/20 08:15 Chloride 107 mmol/L (98-107) 06/27/20 08:15 Carbon Dioxide 30 mmol/L (21-32) 06/27/20 08:15 Anion Gap 6 MMOL/L (8-16) L 06/27/20 08:15 BUN 22.4 mg/dL (7-18) H 06/27/20 08:15 Creatinine 0.9 mg/dL (0.55-1.3) 06/27/20 08:15 Est GFR (CKD-EPI)AfAm 116.65 06/27/20 08:15 Est GFR (CKD-EPI)NonAf 100.64 06/27/20 08:15 Random Glucose 91 mg/dL (74-106) 06/27/20 08:15 Calcium 8.9 mg/dL (8.5-10.1) 06/27/20 08:15 Total Bilirubin 0.2 mg/dL (0.2-1) 06/27/20 08:15 AST 10 U/L (15-37) L 06/27/20 08:15 ALT 10 U/L (13-61) L 06/27/20 08:15 Alkaline Phosphatase 88 U/L (45-117) 06/27/20 08:15 Total Protein 5.7 g/dl (6.4-8.2) L 06/27/20 08:15 Albumin 3.5 g/dl (3.4-5.0) 06/27/20 08:15 Syphilis Serology Non-reactive (NONREACTIVE) 06/27/20 08:15 HIV Ag/Ab Combo Qual Negative (NEGATIVE) 06/27/20 08:15 06/27/20 17:54 history of chronic lymphocytic leukemia on remission Assessment: 06/27/20 17:54 withdrawal symptom Plan: continue detox methadone and valium regimen
[2020-06-27] MEDS: DOXYCYCLINE HYCLATE 100 MG TABLET PO SCH (17:51)
[2020-06-27] MEDS: MELATONIN 5 MG TABLETS PO SCH (21:36)
[2020-06-27] MEDS: THIAMINE HCL 100 MG TABLET (FP) PO SCH (21:37)
[2020-06-28] MEDS ORDERED: chlordiazePOXIDE HCL 25 MG CAPSULE PO SCH (05:00)
[2020-06-28] MEDS: diazePAM 5 MG TABLET PO SCH ×2 (05:13→17:19)
[2020-06-28] MEDS: hydrOXYzine PAMOATE 25 MG CAPSULE (FP) PO SCH ×5 (05:13→22:12)
[2020-06-28] MEDS ORDERED: METHADONE HCL 10 MG TABLET (FOR DETOX USE ONLY) PO ONE (10:00)
[2020-06-28] MEDS: NICOTINE 21 MG/24 HOURS TOPICAL PATCH TD SCH (10:22)
[2020-06-28] MEDS: PRENATAL VITAMINS W/ FOLIC ACID TABLET (FP) PO SCH (10:22)
[2020-06-28] MEDS: DOXYCYCLINE HYCLATE 100 MG TABLET PO SCH ×2 (10:25→17:19)
[2020-06-28] MEDS: diazePAM 5 MG TABLET PO PRN ×2 (10:25→22:16)
--- NOTE | 2020-06-28 14:06 | PN ---
[facility] CIWA - CIWA Score Nausea/Vomitin-Mild Nausea/No Vomiting Muscle Tremors: 1-None Visible, but [place] Anxiety: 1-Mildly Anxious Agitation: 1-Slight > Activity Paroxysmal Sweats: No Perspiration Orientation: 0-Oriented Tacttile Disturbances: 1-Very Mild Itch/Numbness Auditory Disturbances: 0-None Visual Disturbances: 0-None Headache: 1-Very Mild CIWA-Ar Total Score: 6 BHS COWS - Scale Resting Pulse: 2= [place] 101-120 Sweatin= No chills or Flushing Restless Observation: 0= Sits Still Pupil Size: 0= Normal to Room Light Bone or Joint Aches: 1= Mild Discomfort Runny Nose/ Eye Tearin= Nasal Congestion GI Upset > 30mins: 1= Stomach Cramp Tremor Observation of Outstretched Hands: 2= Slight Tremor Visible Yawning Observation: 1= 1-2x During Session Anxiety or Irritability: 2=Irritable/Anxious Goose Flesh Skin: 0=Smooth Skin COWS Score: 10 [facility] Progress Note (SOAP) Subjective: alert,irritable,anxious,interrupted sleep,pain in the body,back Objective: 06/28/20 14:08 Vital Signs Temperature 97.1 F L 06/28/20 12:33 Pulse Rate 118 H 06/28/20 12:33 Respiratory Rate 20 06/28/20 12:33 Blood Pressure 123/91 06/28/20 12:33 O2 Sat by Pulse Oximetry (%) 99 06/28/20 12:33 Assessment: 06/28/20 14:09 withdrawal symptom Plan: continue detox methadone and valium regimen
[2020-06-28] MEDS: MELATONIN 5 MG TABLETS PO SCH (22:12)
[2020-06-28] MEDS: THIAMINE HCL 100 MG TABLET (FP) PO SCH (22:12)
[2020-06-29] MEDS ORDERED: chlordiazePOXIDE HCL 10 MG CAPSULE PO PRN
[2020-06-29] MEDS ORDERED: chlordiazePOXIDE HCL 10 MG CAPSULE PO SCH (05:00)
[2020-06-29] MEDS: hydrOXYzine PAMOATE 25 MG CAPSULE (FP) PO SCH ×5 (05:22→22:24)
[2020-06-29] MEDS ORDERED: diazePAM 5 MG TABLET PO ONE (06:00)
[2020-06-29] MEDS ORDERED: METHADONE HCL 10 MG TABLET (FOR DETOX USE ONLY) ONE (09:32)
[2020-06-29] MEDS ORDERED: METHADONE HCL 5 MG TABLET (FOR DETOX USE ONLY) ONE (09:32)
[2020-06-29] MEDS ORDERED: METHADONE (DETOX) 10 MG, METHADONE (DETOX) 5 MG PO ONE (10:00)
[2020-06-29] MEDS: DOXYCYCLINE HYCLATE 100 MG TABLET PO SCH ×2 (10:18→18:50)
[2020-06-29] MEDS: PRENATAL VITAMINS W/ FOLIC ACID TABLET (FP) PO SCH (10:18)
[2020-06-29] MEDS: NICOTINE 21 MG/24 HOURS TOPICAL PATCH TD SCH (10:19)
[2020-06-29] MEDS: METHOCARBAMOL 500 MG TABLET PO PRN (10:24)
[2020-06-29] MEDS: IBRUTINIB 420 MG PO SCH (11:28)
--- NOTE | 2020-06-29 14:15 | PN ---
[facility] CIWA - CIWA Score Nausea/Vomitin-Mild Nausea/No Vomiting Muscle Tremors: 2 Anxiety: 2 Agitation: 2 Paroxysmal Sweats: No Perspiration Orientation: 0-Oriented Tacttile Disturbances: 0-None Auditory Disturbances: 0-None Visual Disturbances: 1-Very Mild Sensitivity Headache: 1-Very Mild CIWA-Ar Total Score: 9 BHS COWS - Scale Resting Pulse: 1= [place] 81-100 Sweatin= No chills or Flushing Restless Observation: 0= Sits Still Pupil Size: 0= Normal to Room Light Bone or Joint Aches: 1= Mild Discomfort Runny Nose/ Eye Tearin= Nasal Congestion GI Upset > 30mins: 1= Stomach Cramp Tremor Observation of Outstretched Hands: 1= Tremor [place], Not Seen Yawning Observation: 0= None Anxiety or Irritability: 2=Irritable/Anxious Goose Flesh Skin: 0=Smooth Skin COWS Score: 7 S Progress Note (SOAP) Subjective: alert,irritable,anxious,interrupted sleep,aching pain,interrupted sleep Objective: 06/29/20 14:12 Vital Signs Temperature 97.3 F L 06/29/20 12:27 Pulse Rate 86 06/29/20 12:27 Respiratory Rate 16 06/29/20 12:27 Blood Pressure 113/82 06/29/20 12:27 O2 Sat by Pulse Oximetry (%) 99 06/29/20 12:27 Assessment: 06/29/20 14:14 withdrawal symptom Plan: continue detox methadone and valium regimen,continue imbruvica 420 mgs po daily for chronic lymphocytic leukemia
[2020-06-29] MEDS: MELATONIN 5 MG TABLETS PO SCH (22:24)
[2020-06-29] MEDS: THIAMINE HCL 100 MG TABLET (FP) PO SCH (22:25)
[2020-06-30] MEDS ORDERED: chlordiazePOXIDE HCL 10 MG CAPSULE PO SCH (05:00)
[2020-06-30] MEDS: hydrOXYzine PAMOATE 25 MG CAPSULE (FP) PO SCH ×5 (06:58→22:04)
[2020-06-30] MEDS ORDERED: METHADONE HCL 10 MG TABLET (FOR DETOX USE ONLY) PO ONE (10:00)
[2020-06-30] MEDS: PRENATAL VITAMINS W/ FOLIC ACID TABLET (FP) PO SCH (10:25)
[2020-06-30] MEDS: IBRUTINIB 420 MG PO SCH (10:25)
[2020-06-30] MEDS: DOXYCYCLINE HYCLATE 100 MG TABLET PO SCH ×2 (10:25→18:02)
[2020-06-30] MEDS: NICOTINE 21 MG/24 HOURS TOPICAL PATCH TD SCH (10:26)
--- NOTE | 2020-06-30 17:07 | PN ---
[facility] CIWA - CIWA Score Nausea/Vomitin-Mild Nausea/No Vomiting Muscle Tremors: 1-None Visible, but [place] Anxiety: 1-Mildly Anxious Agitation: 1-Slight > Activity Paroxysmal Sweats: No Perspiration Orientation: 0-Oriented Tacttile Disturbances: 0-None Auditory Disturbances: 0-None Visual Disturbances: 0-None Headache: 1-Very Mild CIWA-Ar Total Score: 5 BHS COWS - Scale Resting Pulse: 0= [place] 80 or Below Sweatin= No chills or Flushing Restless Observation: 0= Sits Still Pupil Size: 0= Normal to Room Light Bone or Joint Aches: 1= Mild Discomfort Runny Nose/ Eye Tearin= Nasal Congestion GI Upset > 30mins: 1= Stomach Cramp Tremor Observation of Outstretched Hands: 1= Tremor [place], Not Seen Yawning Observation: 1= 1-2x During Session Anxiety or Irritability: 1=Feels Anxious/Irritable Goose Flesh Skin: 0=Smooth Skin COWS Score: 6 [facility] Progress Note (SOAP) Subjective: alert,irritable,anxious,interrupted sleep,pain in the body Objective: 06/30/20 17:06 Vital Signs Temperature 96.9 F L 06/30/20 12:30 Pulse Rate 77 06/30/20 12:30 Respiratory Rate 20 06/30/20 12:30 Blood Pressure 128/85 06/30/20 12:30 O2 Sat by Pulse Oximetry (%) 100 06/30/20 12:30 Assessment: 06/30/20 17:06 withdrawal symptom,continue methadone and valium regimen,discharge in am Plan: continue methadone and valium regimen,discharge in am
[2020-06-30] MEDS: THIAMINE HCL 100 MG TABLET (FP) PO SCH (22:04)
[2020-06-30] MEDS: MELATONIN 5 MG TABLETS PO SCH (22:04)
[2020-07-01] MEDS ORDERED: chlordiazePOXIDE HCL 10 MG CAPSULE PO ONE (05:00)
[2020-07-01] MEDS: hydrOXYzine PAMOATE 25 MG CAPSULE (FP) PO SCH ×3 (05:29→14:00)
[2020-07-01] MEDS ORDERED: METHADONE HCL 5 MG TABLET (FOR DETOX USE ONLY) PO ONE (06:00)
[2020-07-01 09:41] VITALS: TEMP 97.3
[2020-07-01] MEDS: PRENATAL VITAMINS W/ FOLIC ACID TABLET (FP) PO SCH (10:29)
[2020-07-01] MEDS: DOXYCYCLINE HYCLATE 100 MG TABLET PO SCH (10:29)
[2020-07-01] MEDS: NICOTINE 21 MG/24 HOURS TOPICAL PATCH TD SCH (10:29)
[2020-07-01] MEDS: IBRUTINIB 420 MG PO SCH (10:30)
[2020-07-01 13:29] VITALS: BP 119/75; PULSE 73
--- NOTE | 2020-07-01 13:38 | PN ---
[facility] CIWA - CIWA Score Nausea/Vomitin-No Nausea/No Vomiting Muscle Tremors: None Anxiety: 1-Mildly Anxious Agitation: 0-Normal Activity Paroxysmal Sweats: No Perspiration Orientation: 0-Oriented Tacttile Disturbances: 0-None Auditory Disturbances: 0-None Visual Disturbances: 0-None Headache: 0-None Present CIWA-Ar Total Score: 1 [facility] COWS - Scale Resting Pulse: 0= [place] 80 or Below Sweatin= No chills or Flushing Restless Observation: 0= Sits Still Pupil Size: 0= Normal to Room Light Bone or Joint Aches: 0= None Runny Nose/ Eye Tearin= None GI Upset > 30mins: 0= None Tremor Observation of Outstretched Hands: 0= None Yawning Observation: 0= None Anxiety or Irritability: 1=Feels Anxious/Irritable Goose Flesh Skin: 0=Smooth Skin COWS Score: 1 [facility] Progress Note (SOAP) Subjective: alert,no complaint Objective: 07/01/20 13:37 Vital Signs Temperature 97.3 F L 07/01/20 12:52 Pulse Rate 73 07/01/20 12:52 Respiratory Rate 18 07/01/20 12:52 Blood Pressure 119/75 07/01/20 12:52 O2 Sat by Pulse Oximetry (%) 98 07/01/20 12:52 Assessment: 07/01/20 13:37 detox completed,no withdrawal symptom Plan: stable for discharge today,follow up [facility]
--- NOTE | 2020-07-01 13:46 | DS ---
[facility] Detox Discharge Summary Admission Date: 06/26/20 Discharge Date: 07/01/20 - History Present History: Alcohol Dependence, Cocaine Dependence, Opioid Dependence Additional Comments: alert,oriented x 3 ambulation on unit lung clear on auscultation bilaterally no abdominal pain patient is stable for discharge today follow up with [facility] total time spending on discharge 35 mins Pertinent Past History: chronic lymphocytic leukemia weight loss nicotine dependence - Physical Exam Results Vital Signs: Vital Signs Temperature 97.3 F L 07/01/20 12:52 Pulse Rate 73 07/01/20 12:52 Respiratory Rate 18 07/01/20 12:52 Blood Pressure 119/75 07/01/20 12:52 O2 Sat by Pulse Oximetry (%) 98 07/01/20 12:52 Pertinent Admission Physical Exam Findings: withdrawal signs and symptom Laboratory Last Values WBC 38.6 K/mm3 (4.0-10.0) H* 06/27/20 08:15 RBC 3.72 M/mm3 (4.00-5.60) L 06/27/20 08:15 Hgb 11.6 GM/dL (11.7-16.9) L 06/27/20 08:15 Hct 35.4 % (35.4-49) 06/27/20 08:15 MCV 95.2 fl (80-96) 06/27/20 08:15 MCH 31.1 pg (25.7-33.7) 06/27/20 08:15 MCHC 32.7 g/dl (32.0-35.9) 06/27/20 08:15 RDW 16.4 % (11.9-15.9) H 06/27/20 08:15 Plt Count 109 K/MM3 (134-434) L D 06/27/20 08:15 MPV 10.0 fl (7.5-11.1) 06/27/20 08:15 Sodium 143 mmol/L (136-145) 06/27/20 08:15 Potassium 5.0 mmol/L (3.5-5.1) 06/27/20 08:15 Chloride 107 mmol/L (98-107) 06/27/20 08:15 Carbon Dioxide 30 mmol/L (21-32) 06/27/20 08:15 Anion Gap 6 MMOL/L (8-16) L 06/27/20 08:15 BUN 22.4 mg/dL (7-18) H 06/27/20 08:15 Creatinine 0.9 mg/dL (0.55-1.3) 06/27/20 08:15 Est GFR (CKD-EPI)AfAm 116.65 06/27/20 08:15 Est GFR (CKD-EPI)NonAf 100.64 06/27/20 08:15 Random Glucose 91 mg/dL (74-106) 06/27/20 08:15 Calcium 8.9 mg/dL (8.5-10.1) 06/27/20 08:15 Total Bilirubin 0.2 mg/dL (0.2-1) 06/27/20 08:15 AST 10 U/L (15-37) L 06/27/20 08:15 ALT 10 U/L (13-61) L 06/27/20 08:15 Alkaline Phosphatase 88 U/L (45-117) 06/27/20 08:15 Total Protein 5.7 g/dl (6.4-8.2) L 06/27/20 08:15 Albumin 3.5 g/dl (3.4-5.0) 06/27/20 08:15 Syphilis Serology Non-reactive (NONREACTIVE) 06/27/20 08:15 COVID-19 (TEA) Not detected (Not Detected) 06/26/20 Unknown HIV Ag/Ab Combo Qual Negative (NEGATIVE) 06/27/20 08:15 Vital Signs Temperature 97.3 F L 07/01/20 12:52 Pulse Rate 73 07/01/20 12:52 Respiratory Rate 18 07/01/20 12:52 Blood Pressure 119/75 07/01/20 12:52 O2 Sat by Pulse Oximetry (%) 98 07/01/20 12:52 - Treatment Hospital Course: Detox Protocol Followed, Detoxed Safely, Responded well, Discharged Condition Good - Medication Discharge Medications: Ambulatory Orders Ibrutinib [Imbruvica] 420 mg PO DAILY 06/26/20 - Diagnosis (1) Opioid dependence with withdrawal Current Visit: No Status: Acute (2) Weight loss Current Visit: Yes Status: Acute (3) Alcohol dependence with uncomplicated withdrawal Current Visit: No Status: Acute (4) Cocaine dependence, uncomplicated Current Visit: No Status: Chronic (5) History of chronic lymphoid leukemia in remission Current Visit: No Status: Chronic (6) Weight loss Current Visit: Yes Status: Acute (7) Perianal abscess Current Visit: Yes Status: Acute - AMA Did Patient Leave Against Medical Advice: No
== END 2020-07-01 13:51 | disposition other institution (70) | DRG 773 ==
LOC: YASAS 10:40 → Y3N 14:56
PROVIDERS: ADMIT Allergy & Immunology; ATTEND Allergy & Immunology
PROC: HZ2ZZZZ Detoxification Services for Substance Abuse Treatment (ICD-10-PCS; principal; 2020-06-26)
DX: F10.230 Alcohol dependence with withdrawal, uncomplicated (principal); F11.23 Opioid dependence with withdrawal; F14.20 Cocaine dependence, uncomplicated; F17.210 Nicotine dependence, cigarettes, uncomplicated; C91.11 Chronic lymphocytic leukemia of B-cell type in remission; K61.0 Anal abscess; R63.4 Abnormal weight loss; Z68.22 Body mass index [BMI] 22.0-22.9, adult; Z79.2 Long term (current) use of antibiotics; Z88.6 Allergy status to analgesic agent
CPT/HCPCS: 36415; 80053; 85027; 86780; 87389; 93005; 93010; Q0162; U0003

== ENCOUNTER 2020-07-01 14:36 | Inpatient (IN) | payer OTHER ==
[2020-07-01] MEDS ORDERED: PT OWN MED DRAWER 7, Y5N ONE (15:57)
[2020-07-01] MEDS ORDERED: LOPERAMIDE HCL 2 MG CAPSULE PO PRN (16:14)
[2020-07-01] MEDS ORDERED: MAGNESIUM CITRATE 300 ML BOTTLE PO PRN (16:14)
[2020-07-01] MEDS ORDERED: guaiFENesin 200 MG/10 ML 10 ML UNIT-DOSE CUPS PO PRN (16:14)
[2020-07-01] MEDS ORDERED: ACETAMINOPHEN 325 MG TABLET (FP) PO PRN (16:14)
[2020-07-01] MEDS ORDERED: NICOTINE POLACRILEX 2 MG GUM BUC PRN (16:14)
[2020-07-01] MEDS ORDERED: MAGNESIUM HYDROX 2400MG/30ML ORAL SUSPENSION 30 ML CUP PO PRN (16:14)
[2020-07-01] MEDS ORDERED: MENTHOL/PHENOL 1 EACH UD MM PRN (16:14)
[2020-07-01] MEDS ORDERED: P-EPHED 60MG/TRIPROLIDI 2.5MG TABLET PO PRN (16:14)
[2020-07-01] MEDS ORDERED: IBUPROFEN 400 MG TABLET (FP) PO PRN (16:14)
[2020-07-01] MEDS ORDERED: MAG HYDROX/AL HYDROX/SIMETH 30 ML UNIT-DOSE CUP PO PRN (16:14)
--- NOTE | 2020-07-01 16:14 | HP ---
[facility] Rehab Assess/Revision - Admission History Admitted to Rehab from: [facility] [place] - Vital signs Vital Signs: Vital Signs Period Temp Pulse Resp BP Sys/Lugo Pulse Ox Last 24 Hr 97.2 F 83 18 127/80 97 - Findings Detox History & Physical reviewed: Yes Concur with findings: Yes Inpatient Rehab Admission - Rehab Decision to Admit Inpatient rehab admission?: Yes - Initial Determination Are CD services needed?: Yes Free of communicable disease: Yes Not in need of hospitalization: Yes - Rehab Admission Criteria Previous failed treatment: Yes Poor recovery environment: Yes Comorbidities: Yes Lacks judgement: No Patient is meeting Inpatient Rehab admission criteria:: Yes
[2020-07-01] MEDS: DOXYCYCLINE HYCLATE 100 MG CAPSULE PO SCH (18:16)
[2020-07-01] MEDS: THIAMINE HCL 100 MG TABLET (FP) PO SCH (21:14)
[2020-07-01] MEDS: MELATONIN 5 MG TABLETS PO SCH (21:15)
[2020-07-01] MEDS: hydrOXYzine PAMOATE 25 MG CAPSULE (FP) PO PRN (21:15)
[2020-07-02] MEDS ORDERED: PT OWN MED DRAWER 7, Y5N ONE (08:50)
[2020-07-02] MEDS: IBRUTINIB 420 MG PO SCH (09:36)
[2020-07-02] MEDS: NICOTINE 21 MG/24 HOURS TOPICAL PATCH TD SCH (09:37)
[2020-07-02] MEDS: DOXYCYCLINE HYCLATE 100 MG CAPSULE PO SCH ×2 (09:38→17:59)
[2020-07-02] MEDS: PRENATAL VITAMINS W/ FOLIC ACID TABLET (FP) PO SCH (09:38)
[2020-07-02] MEDS ORDERED: NICOTINE 7 MG/24 HOURS TOPICAL PATCH TD SCH (10:00)
[2020-07-02] MEDS: hydrOXYzine PAMOATE 25 MG CAPSULE (FP) PO PRN (17:59)
[2020-07-02] MEDS: THIAMINE HCL 100 MG TABLET (FP) PO SCH (21:02)
[2020-07-02] MEDS: MELATONIN 5 MG TABLETS PO SCH (21:02)
[2020-07-03] MEDS: IBRUTINIB 420 MG PO SCH (09:04)
[2020-07-03] MEDS: PRENATAL VITAMINS W/ FOLIC ACID TABLET (FP) PO SCH (09:05)
[2020-07-03] MEDS: NICOTINE 21 MG/24 HOURS TOPICAL PATCH TD SCH (09:05)
[2020-07-03] MEDS: DOXYCYCLINE HYCLATE 100 MG CAPSULE PO SCH ×2 (09:06→17:55)
[2020-07-03] MEDS: MELATONIN 5 MG TABLETS PO SCH (21:11)
[2020-07-03] MEDS: THIAMINE HCL 100 MG TABLET (FP) PO SCH (21:11)
[2020-07-03] MEDS: hydrOXYzine PAMOATE 25 MG CAPSULE (FP) PO PRN (21:12)
[2020-07-04 06:52] VITALS: BP 136/92; PULSE 71; TEMP 97.5
[2020-07-04] MEDS: PRENATAL VITAMINS W/ FOLIC ACID TABLET (FP) PO SCH (09:10)
[2020-07-04] MEDS: hydrOXYzine PAMOATE 25 MG CAPSULE (FP) PO PRN (09:10)
[2020-07-04] MEDS: IBRUTINIB 420 MG PO SCH (09:11)
[2020-07-04] MEDS: DOXYCYCLINE HYCLATE 100 MG CAPSULE PO SCH (09:11)
[2020-07-04] MEDS: NICOTINE 21 MG/24 HOURS TOPICAL PATCH TD SCH (09:11)
--- NOTE | 2020-07-04 09:50 | DS ---
[facility] Rehab Discharge Summary - [facility] Rehab Discharge Summary Admission Date: 07/01/20 Discharge Date: 07/04/20 - History Present History: Alcohol dependence, Opioid dependence - Discharge Physical Exam Vital Signs: Vital Signs Temperature 97.5 F L 07/04/20 06:31 Pulse Rate 71 07/04/20 06:31 Respiratory Rate 16 07/04/20 06:31 Blood Pressure 136/92 07/04/20 06:31 O2 Sat by Pulse Oximetry (%) 98 07/04/20 06:31 ROS: DENIES SI/HI, SHAKES, ALCOHOL/OPIOD CRAVINGS, SWEATS AND HEADACHES PE ALERT AND ORIENTED X 3 SKIN WARM AND DRY +PERRLA, EOMS INTACT B/L GI NT, ND EXT FULL ROM, AMB AD AJIT NO TREMORS DENIES SI/HI A/P ALCOHOL/OPIOD DEPENDENCE PATIENT IS MEDICALLY STABLE FOR D/C TO CONTACT SPONSOR UPON D/C AND CONTINUE WITH AA/NA VIRTUAL MEETINGS - Treatment Discharge Condition: Discharge condition good Hospital Course: PATIENT MEDICALLY STABLE TO BE D/C FROM REHAB TODAY FOR OPIOD/ALCOHOL DEPENDENCE. PATIENT STATES " I WANT TO GO HOME AND SEE MY MOTHER". DURING COURSE OF TREATMENT, HE ATTENDED GROUP MEETINGS AND 1:1 SESSIONS WITH COUNSELING STAFF. HE WILL CONTACT SPONSOR UPON D/C FOR AFTERCARE AND CONTINUE WITH VIRTUAL AA/NA. PATIENT REFUSED NARCAN PRESCRIPTION HE HAS KIT AT HOME. HE ALSO HAD IMBRUVICA IN HIS PROPERTY. PATIENT MEDICALLY ADVISED TO FOLLOW UP WITH PCP/ONC RECOMMENDED. Ambulatory Orders Ibrutinib [Imbruvica] 420 mg PO DAILY 06/26/20 - Medication Discharge Medications: Ambulatory Orders Ibrutinib [Imbruvica] 420 mg PO DAILY 06/26/20 - Medication-Assisted Treatment (MAT) Medication-Assisted Treatment (MAT): No - Discharge Instructions Diet, activity, other medical instructions: Diet: REGULAR Activity: AMB AD AJIT TOLERATED Other medical instructions: F/U WITH PCP RECOMMENDED - Follow-up Referral Minutes to complete discharge: 40 - AMA Did Patient Leave Against Medical Advice: No
== END 2020-07-04 09:15 | disposition home or self-care (01) | DRG 772 ==
LOC: YASAS 14:36 → Y3W 14:38
PROVIDERS: ADMIT Allergy & Immunology; ATTEND Allergy & Immunology
PROC: HZ42ZZZ Group Counseling for Substance Abuse Treatment, Cognitive-Behavioral (ICD-10-PCS; principal; 2020-07-01)
DX: F11.20 Opioid dependence, uncomplicated (principal); F10.20 Alcohol dependence, uncomplicated; F14.20 Cocaine dependence, uncomplicated; Z85.6 Personal history of leukemia

== ENCOUNTER 2021-04-27 14:36 | Inpatient (IN) | payer OTHER ==
[2021-04-27 15:57] VITALS: BMI 20.8
[2021-04-27] MEDS ORDERED: MENTHOL/PHENOL 1 EACH UD MM PRN (17:26)
[2021-04-27] MEDS ORDERED: MAGNESIUM HYDROX 2400MG/30ML ORAL SUSPENSION 30 ML CUP PO PRN (17:26)
[2021-04-27] MEDS ORDERED: MAGNESIUM CITRATE 300 ML BOTTLE PO PRN (17:26)
[2021-04-27] MEDS ORDERED: BISMUTH SUBSALICYLATE 524 MG/30 ML PO PRN (17:26)
[2021-04-27] MEDS ORDERED: ACETAMINOPHEN 325 MG TABLET (FP) PO PRN (17:26)
[2021-04-27] MEDS ORDERED: MAG HYDROX/AL HYDROX/SIMETH 30 ML UNIT-DOSE CUP PO PRN (17:26)
[2021-04-27] MEDS ORDERED: METHADONE HCL 10 MG TABLET (FOR DETOX USE ONLY) PO ONE (17:26)
[2021-04-27] MEDS ORDERED: NICOTINE POLACRILEX 2 MG GUM BUC PRN (17:26)
[2021-04-27] MEDS ORDERED: IBUPROFEN 400 MG TABLET (FP) PO PRN (17:26)
[2021-04-27] MEDS: cloNIDine HCL 0.1 MG TABLET PO PRN (19:16)
[2021-04-27] MEDS: hydrOXYzine PAMOATE 25 MG CAPSULE (FP) PO SCH ×2 (19:16→23:09)
[2021-04-27] MEDS: ONDANSETRON *ODT* 4 MG TABLET SL PRN (19:19)
[2021-04-27] MEDS: MELATONIN 5 MG TABLETS PO SCH (23:09)
[2021-04-27] MEDS: THIAMINE HCL 100 MG TABLET (FP) PO SCH (23:09)
[2021-04-28] MEDS: hydrOXYzine PAMOATE 25 MG CAPSULE (FP) PO SCH ×2 (07:07→10:51)
[2021-04-28] MEDS ORDERED: METHADONE HCL 10 MG TABLET (FOR DETOX USE ONLY) ONE (09:46)
[2021-04-28] MEDS ORDERED: METHADONE HCL 5 MG TABLET (FOR DETOX USE ONLY) ONE (09:47)
[2021-04-28] MEDS ORDERED: METHADONE (DETOX) 20 MG, METHADONE (DETOX) 5 MG PO ONE (10:00)
[2021-04-28 10:14] LABS: HEMATOCRIT 39.2 % (35.4-49); HEMOGLOBIN 12.6 GM/dL (11.7-16.9); MCH 29.5 pg (25.7-33.7); MCHC 32.1 g/dl (32.0-35.9); MEAN CELL VOLUME 91.7 fl (80-96); PLATELET COUNT 156 10^3/uL (134-434); RBC 4.27 M/mm3 (4.00-5.60); RDW 15.7 % (11.9-15.9)
[2021-04-28 10:18] LABS: ALBUMIN 3.5 g/dl (3.4-5.0)
[2021-04-28 10:23] LABS: CALCIUM 9.2 mg/dL (8.5-10.1)
[2021-04-28 10:24] LABS: BLOOD UREA NITROGEN 10.7 mg/dL (7-18)
[2021-04-28 10:26] LABS: TOT PROT 6.2 g/dl (6.4-8.2)
[2021-04-28 10:27] LABS: CREATININE 0.9 mg/dL (0.55-1.3)
[2021-04-28 10:28] LABS: WHITE BLOOD COUNT 38.4 K/mm3 (4.0-10.0)
[2021-04-28 10:35] LABS: BILIRUBIN,TOTAL 0.7 mg/dL (0.2-1)
[2021-04-28] MEDS: PRENATAL VITAMINS W/ FOLIC ACID TABLET (FP) PO SCH (10:51)
[2021-04-28] MEDS: METHOCARBAMOL 500 MG TABLET PO PRN (10:53)
[2021-04-28] MEDS: ONDANSETRON *ODT* 4 MG TABLET SL PRN (22:47)
[2021-04-28] MEDS: THIAMINE HCL 100 MG TABLET (FP) PO SCH (22:47)
[2021-04-28] MEDS: MELATONIN 5 MG TABLETS PO SCH (22:47)
[2021-04-29] MEDS ORDERED: METHADONE HCL 10 MG TABLET (FOR DETOX USE ONLY) PO ONE (10:00)
[2021-04-29 11:08] LABS: HEMATOCRIT 38.6 % (35.4-49); HEMOGLOBIN 12.7 GM/dL (11.7-16.9); MEAN CELL VOLUME 90.9 fl (80-96); MEAN PLT VOLUME 8.9 fl (7.5-11.1); PLATELET COUNT 175 10^3/uL (134-434); RBC 4.25 M/mm3 (4.00-5.60); RDW 15.9 % (11.9-15.9)
[2021-04-29] MEDS: PRENATAL VITAMINS W/ FOLIC ACID TABLET (FP) PO SCH (11:15)
[2021-04-29 11:28] LABS: WHITE BLOOD COUNT 36.6 K/mm3 (4.0-10.0)
[2021-04-29] MEDS: ONDANSETRON *ODT* 4 MG TABLET SL PRN (12:50)
[2021-04-29] MEDS: THIAMINE HCL 100 MG TABLET (FP) PO SCH (22:42)
[2021-04-29] MEDS: MELATONIN 5 MG TABLETS PO SCH (22:42)
[2021-04-29] MEDS: cloNIDine HCL 0.1 MG TABLET PO PRN (22:43)
[2021-04-29] MEDS: METHOCARBAMOL 500 MG TABLET PO PRN (22:43)
[2021-04-30] MEDS ORDERED: METHADONE HCL 5 MG TABLET (FOR DETOX USE ONLY) ONE (09:04)
[2021-04-30] MEDS ORDERED: METHADONE HCL 10 MG TABLET (FOR DETOX USE ONLY) ONE (09:04)
[2021-04-30] MEDS ORDERED: METHADONE (DETOX) 10 MG, METHADONE (DETOX) 5 MG PO ONE (10:00)
[2021-04-30] MEDS: PRENATAL VITAMINS W/ FOLIC ACID TABLET (FP) PO SCH (10:41)
[2021-04-30] MEDS: hydrOXYzine PAMOATE 25 MG CAPSULE (FP) PO PRN ×2 (10:42→22:08)
[2021-04-30] MEDS: THIAMINE HCL 100 MG TABLET (FP) PO SCH (22:08)
[2021-04-30] MEDS: METHOCARBAMOL 500 MG TABLET PO PRN (22:08)
[2021-04-30] MEDS: MELATONIN 5 MG TABLETS PO SCH (22:08)
[2021-05-01] MEDS: hydrOXYzine PAMOATE 25 MG CAPSULE (FP) PO PRN ×2 (09:40→22:38)
[2021-05-01] MEDS: PRENATAL VITAMINS W/ FOLIC ACID TABLET (FP) PO SCH (09:40)
[2021-05-01] MEDS: METHOCARBAMOL 500 MG TABLET PO PRN ×2 (09:40→22:38)
[2021-05-01] MEDS ORDERED: METHADONE HCL 10 MG TABLET (FOR DETOX USE ONLY) PO ONE (10:00)
[2021-05-01] MEDS: diazePAM 5 MG TABLET PO PRN ×2 (13:16→22:38)
[2021-05-01] MEDS: MELATONIN 5 MG TABLETS PO SCH (22:36)
[2021-05-01] MEDS: THIAMINE HCL 100 MG TABLET (FP) PO SCH (22:36)
[2021-05-02] MEDS ORDERED: METHADONE HCL 5 MG TABLET (FOR DETOX USE ONLY) PO ONE (06:00)
[2021-05-02] MEDS: PRENATAL VITAMINS W/ FOLIC ACID TABLET (FP) PO SCH (10:28)
[2021-05-02] MEDS: hydrOXYzine PAMOATE 25 MG CAPSULE (FP) PO PRN ×2 (10:29→21:39)
[2021-05-02] MEDS: diazePAM 5 MG TABLET PO PRN (15:27)
[2021-05-02] MEDS: METHOCARBAMOL 500 MG TABLET PO PRN (21:39)
[2021-05-02] MEDS: THIAMINE HCL 100 MG TABLET (FP) PO SCH (21:39)
[2021-05-02] MEDS: MELATONIN 5 MG TABLETS PO SCH (21:39)
[2021-05-03] MEDS: hydrOXYzine PAMOATE 25 MG CAPSULE (FP) PO PRN (09:43)
[2021-05-03] MEDS: diazePAM 5 MG TABLET PO PRN ×2 (09:43→17:50)
[2021-05-03] MEDS: PRENATAL VITAMINS W/ FOLIC ACID TABLET (FP) PO SCH (09:45)
[2021-05-03] MEDS: ACETAMINOPHEN 325 MG TABLET (FP) PO PRN (17:49)
[2021-05-03] MEDS: THIAMINE HCL 100 MG TABLET (FP) PO SCH (22:32)
[2021-05-03] MEDS: MELATONIN 5 MG TABLETS PO SCH (22:32)
[2021-05-04] MEDS: PRENATAL VITAMINS W/ FOLIC ACID TABLET (FP) PO SCH (10:19)
[2021-05-04] MEDS: diazePAM 5 MG TABLET PO PRN ×2 (10:19→22:01)
[2021-05-04] MEDS: ACETAMINOPHEN 325 MG TABLET (FP) PO PRN (10:22)
[2021-05-04] MEDS: MELATONIN 5 MG TABLETS PO SCH (22:02)
[2021-05-04] MEDS: THIAMINE HCL 100 MG TABLET (FP) PO SCH (22:02)
[2021-05-05 06:16] VITALS: BP 121/82; PULSE 84; TEMP 97.1
== END 2021-05-05 08:33 | disposition home or self-care (01) | DRG 773 ==
LOC: YASAS 14:36 → Y3N 18:35
PROVIDERS: ADMIT Allergy & Immunology; ATTEND Allergy & Immunology
PROC: HZ2ZZZZ Detoxification Services for Substance Abuse Treatment (ICD-10-PCS; principal; 2021-04-27)
DX: F11.23 Opioid dependence with withdrawal (principal); F10.230 Alcohol dependence with withdrawal, uncomplicated; F10.220 Alcohol dependence with intoxication, uncomplicated; F14.20 Cocaine dependence, uncomplicated; F12.20 Cannabis dependence, uncomplicated; F17.210 Nicotine dependence, cigarettes, uncomplicated; F19.24 Other psychoactive substance dependence with psychoactive substance-induced mood disorder; K21.9 Gastro-esophageal reflux disease without esophagitis; R63.4 Abnormal weight loss; D72.829 Elevated white blood cell count, unspecified; K61.0 Anal abscess; C91.11 Chronic lymphocytic leukemia of B-cell type in remission
CPT/HCPCS: 36415; 80053; 85027; 86780; C9803; J0735; Q0162; U0003; U0005

== ENCOUNTER 2021-07-23 11:49 | Inpatient (IN) | payer OTHER ==
[2021-07-23 12:49] VITALS: BMI 21.9
[2021-07-23] MEDS ORDERED: MAGNESIUM CITRATE 300 ML BOTTLE PO PRN (15:09)
[2021-07-23] MEDS ORDERED: cloNIDine HCL 0.1 MG TABLET PO PRN (15:09)
[2021-07-23] MEDS ORDERED: MENTHOL/PHENOL 1 EACH UD MM PRN (15:09)
[2021-07-23] MEDS ORDERED: NICOTINE 10 MG CARTRIDGE (INHALER) IH PRN (15:09)
[2021-07-23] MEDS ORDERED: MAG HYDROX/AL HYDROX/SIMETH 30 ML UNIT-DOSE CUP PO PRN (15:09)
[2021-07-23] MEDS ORDERED: MAGNESIUM HYDROX 2400MG/30ML ORAL SUSPENSION 30 ML CUP PO PRN (15:09)
[2021-07-23] MEDS ORDERED: clonazePAM 0.5 MG ODT TABLETS SL PRN (15:09)
[2021-07-23] MEDS ORDERED: ACETAMINOPHEN 325 MG TABLET (FP) PO PRN ×2 (15:09)
[2021-07-23] MEDS ORDERED: BISMUTH SUBSALICYLATE 524 MG/30 ML PO PRN (15:09)
[2021-07-23] MEDS ORDERED: NICOTINE POLACRILEX 2 MG GUM BUC PRN (15:09)
[2021-07-23] MEDS: NICOTINE 21 MG/24 HOURS TOPICAL PATCH TD SCH (16:13)
[2021-07-23] MEDS ORDERED: methaDONE HCL 10 MG TABLET (FOR DETOX USE ONLY) PO ONE (16:15)
[2021-07-23] MEDS ORDERED: hydrOXYzine PAMOATE 25 MG CAPSULE (FP) PO SCH (18:00)
[2021-07-23] MEDS: THIAMINE HCL 100 MG TABLET (FP) PO SCH (23:18)
[2021-07-23] MEDS: MELATONIN 5 MG TABLETS PO SCH (23:18)
[2021-07-24] MEDS ORDERED: methaDONE HCL 10 MG TABLET (FOR DETOX USE ONLY) ONE (10:02)
[2021-07-24] MEDS: METHOCARBAMOL 500 MG TABLET PO PRN (10:58)
[2021-07-24] MEDS: PRENATAL VITAMINS W/ FOLIC ACID TABLET (FP) PO SCH (10:58)
[2021-07-24] MEDS: NICOTINE 21 MG/24 HOURS TOPICAL PATCH TD SCH (10:58)
[2021-07-24] MEDS: diazePAM 5 MG TABLET PO PRN (11:31)
[2021-07-24] MEDS: ONDANSETRON *ODT* 4 MG TABLET SL PRN (11:33)
[2021-07-24 16:19] LABS: HEMATOCRIT 35.9 % (35.4-49); HEMOGLOBIN 11.9 GM/dL (11.7-16.9); MCHC 33.3 g/dl (32.0-35.9); MEAN CELL VOLUME 93.1 fl (80-96); MEAN PLT VOLUME 9.8 fl (7.5-11.1); PLATELET COUNT 56 10^3/uL (134-434); RBC 3.86 M/mm3 (4.00-5.60); RDW 15.6 % (11.9-15.9)
[2021-07-24 16:41] LABS: CALCIUM 8.6 mg/dL (8.5-10.1)
[2021-07-24 16:42] LABS: ALBUMIN 3.2 g/dl (3.4-5.0); BLOOD UREA NITROGEN 11.7 mg/dL (7-18); WHITE BLOOD COUNT 31.1 K/mm3 (4.0-10.0)
[2021-07-24 16:47] LABS: BILIRUBIN,TOTAL 0.5 mg/dL (0.2-1); TOT PROT 5.9 g/dl (6.4-8.2)
[2021-07-24 17:23] LABS: HIV INTERPRETATION NEGATIVE (NEGATIVE)
[2021-07-24] MEDS: MELATONIN 5 MG TABLETS PO SCH (22:49)
[2021-07-24] MEDS: THIAMINE HCL 100 MG TABLET (FP) PO SCH (22:49)
[2021-07-24] MEDS: hydrOXYzine PAMOATE 25 MG CAPSULE (FP) PO PRN (22:49)
[2021-07-25] MEDS ORDERED: methaDONE HCL 10 MG TABLET (FOR DETOX USE ONLY) PO ONE (10:00)
[2021-07-25] MEDS: NICOTINE 21 MG/24 HOURS TOPICAL PATCH TD SCH (10:13)
[2021-07-25] MEDS: PRENATAL VITAMINS W/ FOLIC ACID TABLET (FP) PO SCH (10:13)
[2021-07-25] MEDS: diazePAM 5 MG TABLET PO PRN (10:17)
[2021-07-25] MEDS: ONDANSETRON *ODT* 4 MG TABLET SL PRN (10:17)
[2021-07-25] MEDS: THIAMINE HCL 100 MG TABLET (FP) PO SCH (22:21)
[2021-07-25] MEDS: MELATONIN 5 MG TABLETS PO SCH (22:21)
[2021-07-26] MEDS ORDERED: methaDONE HCL 10 MG TABLET (FOR DETOX USE ONLY) ONE (09:48)
[2021-07-26] MEDS: METHOCARBAMOL 500 MG TABLET PO PRN (10:33)
[2021-07-26] MEDS: NICOTINE 21 MG/24 HOURS TOPICAL PATCH TD SCH (10:34)
[2021-07-26] MEDS: PRENATAL VITAMINS W/ FOLIC ACID TABLET (FP) PO SCH (10:34)
[2021-07-26 12:48] LABS: HEMATOCRIT 36.5 % (35.4-49); MCHC 32.9 g/dl (32.0-35.9); MEAN CELL VOLUME 94.2 fl (80-96); MEAN PLT VOLUME 10.1 fl (7.5-11.1); PLATELET COUNT 46 10^3/uL (134-434); RBC 3.88 M/mm3 (4.00-5.60); RDW 15.8 % (11.9-15.9); WHITE BLOOD COUNT 29.2 K/mm3 (4.0-10.0)
[2021-07-26] MEDS: THIAMINE HCL 100 MG TABLET (FP) PO SCH (22:29)
[2021-07-26] MEDS: MELATONIN 5 MG TABLETS PO SCH (22:29)
[2021-07-27] MEDS ORDERED: methaDONE HCL 10 MG TABLET (FOR DETOX USE ONLY) PO ONE (10:00)
[2021-07-27] MEDS: METHOCARBAMOL 500 MG TABLET PO PRN (10:34)
[2021-07-27] MEDS: PRENATAL VITAMINS W/ FOLIC ACID TABLET (FP) PO SCH (10:34)
[2021-07-27] MEDS: hydrOXYzine PAMOATE 25 MG CAPSULE (FP) PO PRN (10:34)
[2021-07-27] MEDS: NICOTINE 21 MG/24 HOURS TOPICAL PATCH TD SCH (10:35)
[2021-07-27] MEDS: MELATONIN 5 MG TABLETS PO SCH (21:19)
[2021-07-27] MEDS: THIAMINE HCL 100 MG TABLET (FP) PO SCH (21:19)
[2021-07-28 06:28] VITALS: BP 112/65; PULSE 60; TEMP 96.9
[2021-07-28] MEDS: PRENATAL VITAMINS W/ FOLIC ACID TABLET (FP) PO SCH (09:07)
[2021-07-28] MEDS: NICOTINE 21 MG/24 HOURS TOPICAL PATCH TD SCH (09:07)
== END 2021-07-28 09:03 | disposition home or self-care (01) | DRG 897 ==
LOC: YASAS 11:49 → Y3N 15:56
PROVIDERS: ADMIT Allergy & Immunology; ATTEND Allergy & Immunology
PROC: HZ2ZZZZ Detoxification Services for Substance Abuse Treatment (ICD-10-PCS; principal; 2021-07-23)
DX: F19.230 Other psychoactive substance dependence with withdrawal, uncomplicated (principal); F14.20 Cocaine dependence, uncomplicated; F11.23 Opioid dependence with withdrawal; F10.230 Alcohol dependence with withdrawal, uncomplicated; F12.20 Cannabis dependence, uncomplicated; F17.210 Nicotine dependence, cigarettes, uncomplicated; F19.24 Other psychoactive substance dependence with psychoactive substance-induced mood disorder; D72.828 Other elevated white blood cell count; R63.4 Abnormal weight loss; Z68.21 Body mass index [BMI] 21.0-21.9, adult; Z85.6 Personal history of leukemia; Z88.6 Allergy status to analgesic agent
CPT/HCPCS: 36415; 80053; 85027; 86780; 87389; C9803; J0735; Q0162; U0003; U0005

== ENCOUNTER 2021-12-20 22:30 | Inpatient (IN) | payer OTHER ==
[2021-12-20] MEDS ORDERED: MAGNESIUM HYDROX 2400MG/30ML ORAL SUSPENSION 30 ML CUP PO PRN (23:44)
[2021-12-20] MEDS ORDERED: guaiFENesin 200 MG/10 ML 10 ML UNIT-DOSE CUPS PO PRN (23:44)
[2021-12-20] MEDS ORDERED: MAG HYDROX/AL HYDROX/SIMETH 30 ML UNIT-DOSE CUP PO PRN (23:44)
[2021-12-20] MEDS ORDERED: MAGNESIUM CITRATE 300 ML BOTTLE PO PRN (23:44)
[2021-12-20] MEDS ORDERED: PROCHLORPERAZINE MALEATE 5 MG TABLET PO PRN (23:44)
[2021-12-20] MEDS ORDERED: NICOTINE POLACRILEX 2 MG GUM BUC PRN (23:44)
[2021-12-20] MEDS ORDERED: ACETAMINOPHEN 325 MG TABLET (FP) PO PRN ×2 (23:44)
[2021-12-20] MEDS ORDERED: DICYCLOMINE HCL 10 MG CAPSULE PO PRN (23:44)
[2021-12-20] MEDS ORDERED: NALOXONE HCL 0.4 MG/ML VIAL IM PRN (23:44)
[2021-12-20] MEDS ORDERED: P-EPHED 60MG/TRIPROLIDI 2.5MG TABLET PO PRN (23:44)
[2021-12-20] MEDS ORDERED: MENTHOL/PHENOL 1 EACH UD MM PRN (23:44)
[2021-12-20] MEDS ORDERED: NALOXONE (NARCAN) HCL 4 MG/0.1 ML SPRAY NS PRN (23:44)
[2021-12-21 00:22] VITALS: BMI 22.1
[2021-12-21] MEDS ORDERED: methaDONE HCL 10 MG TABLET (FOR DETOX USE ONLY) PO ONE ×2 (04:09→10:00)
[2021-12-21] MEDS ORDERED: clonazePAM 0.5 MG ODT TABLETS SL PRN (04:09)
[2021-12-21] MEDS: PRENATAL VITAMINS W/ FOLIC ACID TABLET (FP) PO SCH (11:21)
[2021-12-21] MEDS: NICOTINE 14 MG/24 HOURS TOPICAL PATCH TD SCH (11:22)
[2021-12-21] MEDS: METHOCARBAMOL 500 MG TABLET PO PRN ×3 (11:22→23:06)
[2021-12-21] MEDS: cloNIDine HCL 0.1 MG TABLET PO PRN ×2 (11:45→17:56)
[2021-12-21 13:39] LABS: HEMATOCRIT 34.6 % (35.4-49); HEMOGLOBIN 11.4 GM/dL (11.7-16.9); MCH 30.8 pg (25.7-33.7); MEAN CELL VOLUME 93.4 fl (80-96); MEAN PLT VOLUME 10.2 fl (7.5-11.1); PLATELET COUNT 54 10^3/uL (134-434); RBC 3.71 M/mm3 (4.00-5.60); RDW 15.9 % (11.9-15.9)
[2021-12-21 13:51] LABS: WHITE BLOOD COUNT 30.4 K/mm3 (4.0-10.0)
[2021-12-21] MEDS ORDERED: POTASSIUM CHLORIDE ORAL LIQUID 20 MEQ/15 ML PO ONE ×2 (15:00→19:30)
[2021-12-21 15:49] LABS: HIV INTERPRETATION NEGATIVE (NEGATIVE)
[2021-12-21 15:52] LABS: ALBUMIN 3.5 g/dl (3.4-5.0); BILIRUBIN,TOTAL 0.4 mg/dL (0.2-1); BLOOD UREA NITROGEN 15.3 mg/dL (7-18); CALCIUM 8.4 mg/dL (8.5-10.1); CREATININE 1.1 mg/dL (0.55-1.3); TOT PROT 5.8 g/dl (6.4-8.2)
[2021-12-21] MEDS ORDERED: MELATONIN 5 MG TABLETS PO SCH (22:00)
[2021-12-21] MEDS: SUVOREXANT 10 MG TABLET PO PRN (23:06)
[2021-12-21] MEDS: THIAMINE HCL 100 MG TABLET (FP) PO SCH (23:06)
[2021-12-22] MEDS ORDERED: methaDONE HCL 10 MG TABLET (FOR DETOX USE ONLY) ONE (09:18)
[2021-12-22] MEDS: PRENATAL VITAMINS W/ FOLIC ACID TABLET (FP) PO SCH (10:09)
[2021-12-22] MEDS: METHOCARBAMOL 500 MG TABLET PO PRN ×2 (10:09→17:50)
[2021-12-22] MEDS: NICOTINE 14 MG/24 HOURS TOPICAL PATCH TD SCH (10:11)
[2021-12-22] MEDS: cloNIDine HCL 0.1 MG TABLET PO PRN ×2 (10:13→22:12)
[2021-12-22 10:55] LABS: HEMATOCRIT 34.4 % (35.4-49); HEMOGLOBIN 11.3 GM/dL (11.7-16.9); MCH 30.7 pg (25.7-33.7); MCHC 32.8 g/dl (32.0-35.9); MEAN CELL VOLUME 93.4 fl (80-96); MEAN PLT VOLUME 10.2 fl (7.5-11.1); PLATELET COUNT 59 10^3/uL (134-434); RBC 3.68 M/mm3 (4.00-5.60)
[2021-12-22 11:35] LABS: WHITE BLOOD COUNT 35.8 K/mm3 (4.0-10.0)
[2021-12-22 12:40] LABS: ANISOCYTOSIS 1+; MACROCYTOSIS 0; OVALOCYTE 1+; PLATELET ESTIMATE DECREASED
[2021-12-22] MEDS: diazePAM 5 MG TABLET PO PRN ×2 (17:49→22:11)
[2021-12-22] MEDS: SUVOREXANT 10 MG TABLET PO PRN (22:11)
[2021-12-22] MEDS: THIAMINE HCL 100 MG TABLET (FP) PO SCH (22:12)
[2021-12-23] MEDS ORDERED: methaDONE HCL 10 MG TABLET (FOR DETOX USE ONLY) PO ONE (10:00)
[2021-12-23] MEDS: diazePAM 5 MG TABLET PO PRN ×3 (10:53→22:02)
[2021-12-23] MEDS: METHOCARBAMOL 500 MG TABLET PO PRN (10:53)
[2021-12-23] MEDS: PRENATAL VITAMINS W/ FOLIC ACID TABLET (FP) PO SCH (10:53)
[2021-12-23] MEDS: NICOTINE 14 MG/24 HOURS TOPICAL PATCH TD SCH (10:55)
[2021-12-23] MEDS: IBRUTINIB 420 MG PO SCH (15:56)
[2021-12-23] MEDS: THIAMINE HCL 100 MG TABLET (FP) PO SCH (22:03)
[2021-12-23] MEDS: SUVOREXANT 10 MG TABLET PO PRN (22:04)
[2021-12-24] MEDS ORDERED: methaDONE HCL 10 MG TABLET (FOR DETOX USE ONLY) ONE (09:40)
[2021-12-24] MEDS: METHOCARBAMOL 500 MG TABLET PO PRN (10:50)
[2021-12-24] MEDS: diazePAM 5 MG TABLET PO PRN ×2 (10:50→22:18)
[2021-12-24] MEDS: NICOTINE 14 MG/24 HOURS TOPICAL PATCH TD SCH (10:51)
[2021-12-24] MEDS: PRENATAL VITAMINS W/ FOLIC ACID TABLET (FP) PO SCH (10:51)
[2021-12-24] MEDS: IBRUTINIB 420 MG PO SCH (10:55)
[2021-12-24] MEDS: SUVOREXANT 10 MG TABLET PO PRN (21:48)
[2021-12-24] MEDS: THIAMINE HCL 100 MG TABLET (FP) PO SCH (22:15)
[2021-12-25] MEDS ORDERED: methaDONE HCL 10 MG TABLET (FOR DETOX USE ONLY) PO ONE (10:00)
[2021-12-25] MEDS: METHOCARBAMOL 500 MG TABLET PO PRN (10:55)
[2021-12-25] MEDS: PRENATAL VITAMINS W/ FOLIC ACID TABLET (FP) PO SCH (10:55)
[2021-12-25] MEDS: NICOTINE 14 MG/24 HOURS TOPICAL PATCH TD SCH (10:56)
[2021-12-25] MEDS: diazePAM 5 MG TABLET PO PRN (10:59)
[2021-12-25] MEDS: IBRUTINIB 420 MG PO SCH (11:53)
[2021-12-25] MEDS: THIAMINE HCL 100 MG TABLET (FP) PO SCH (22:32)
[2021-12-26 09:36] VITALS: BP 113/82; PULSE 75; TEMP 98.4
[2021-12-26] MEDS: PRENATAL VITAMINS W/ FOLIC ACID TABLET (FP) PO SCH (10:47)
[2021-12-26] MEDS: IBRUTINIB 420 MG PO SCH (10:47)
[2021-12-26] MEDS: NICOTINE 14 MG/24 HOURS TOPICAL PATCH TD SCH (10:47)
[2021-12-27 10:08] LABS: SARS-CoV-2 NAA Not Detected (Not Detected)
[2021-12-27 12:19] LABS: SARS-CoV-2 NAA Not Detected
== END 2021-12-26 12:11 | disposition home or self-care (01) | DRG 897 ==
LOC: YASAS 22:30 → Y6N 12-21 03:41
PROVIDERS: ADMIT Allergy & Immunology; ATTEND Allergy & Immunology
PROC: HZ2ZZZZ Detoxification Services for Substance Abuse Treatment (ICD-10-PCS; principal; 2021-12-21)
DX: F11.23 Opioid dependence with withdrawal (principal); F14.20 Cocaine dependence, uncomplicated; F19.282 Other psychoactive substance dependence with psychoactive substance-induced sleep disorder; C91.11 Chronic lymphocytic leukemia of B-cell type in remission; F10.20 Alcohol dependence, uncomplicated; F12.20 Cannabis dependence, uncomplicated; F17.210 Nicotine dependence, cigarettes, uncomplicated; F19.24 Other psychoactive substance dependence with psychoactive substance-induced mood disorder; D69.6 Thrombocytopenia, unspecified; D50.9 Iron deficiency anemia, unspecified; D72.819 Decreased white blood cell count, unspecified; R73.9 Hyperglycemia, unspecified; R63.4 Abnormal weight loss; Z68.22 Body mass index [BMI] 22.0-22.9, adult; Z88.6 Allergy status to analgesic agent; Z56.0 Unemployment, unspecified; Z59.00 Homelessness unspecified
CPT/HCPCS: 36415; 80053; 82962; 84132; 85025; 85027; 86780; 87389; C9803; J0735; U0003; U0005

== ENCOUNTER 2022-10-26 17:54 | Inpatient (IN) | payer OTHER ==
[2022-10-26 18:55] VITALS: BMI 20.1
[2022-10-27] MEDS ORDERED: LOPERAMIDE HCL 2 MG CAPSULE PO PRN (01:05)
[2022-10-27] MEDS ORDERED: ONDANSETRON *ODT* 4 MG TABLET SL PRN (01:05)
[2022-10-27] MEDS ORDERED: NALOXONE HCL (KLOXXADO) 8 MG SPRAY NS PRN (01:05)
[2022-10-27] MEDS ORDERED: MAG HYDROX/AL HYDROX/SIMETH 30 ML UNIT-DOSE CUP PO PRN (01:05)
[2022-10-27] MEDS ORDERED: NICOTINE POLACRILEX 2 MG GUM BUC PRN (01:05)
[2022-10-27] MEDS ORDERED: MAGNESIUM HYDROX 2400MG/30ML ORAL SUSPENSION 30 ML CUP PO PRN (01:05)
[2022-10-27] MEDS ORDERED: BENZOCAINE/MENTHOL (CHLORASEPTIC ) LOZENGE MM PRN (01:05)
[2022-10-27] MEDS ORDERED: DICYCLOMINE HCL 10 MG CAPSULE PO PRN (01:05)
[2022-10-27] MEDS ORDERED: POLYETHYLENE GLYCOL (HEALTHYLAX) 3350 17 GM PACKET PO PRN (01:05)
[2022-10-27] MEDS ORDERED: BISMUTH SUBSALICYLATE 524 MG/30 ML PO PRN (01:05)
[2022-10-27] MEDS ORDERED: IBUPROFEN 400 MG TABLET (FP) PO PRN (01:05)
[2022-10-27] MEDS ORDERED: ACETAMINOPHEN 325 MG TABLET (FP) PO PRN ×2 (01:05)
[2022-10-27] MEDS: PRENATAL VITAMINS W/ FOLIC ACID TABLET (FP) PO SCH (11:14)
[2022-10-27] MEDS: NICOTINE 14 MG/24 HOURS TOPICAL PATCH TD SCH (11:14)
[2022-10-27] MEDS ORDERED: diazePAM 5 MG TABLET PO PRN (14:39)
[2022-10-27] MEDS: METHOCARBAMOL 500 MG TABLET PO PRN (14:54)
[2022-10-27] MEDS: diazePAM 5 MG TABLET PO SCH ×2 (17:12→22:39)
[2022-10-27] MEDS: MELATONIN 5 MG TABLETS PO SCH (22:39)
[2022-10-27] MEDS: THIAMINE HCL 100 MG TABLET (FP) PO SCH (22:39)
[2022-10-28] MEDS: diazePAM 5 MG TABLET PO SCH ×3 (05:40→22:33)
[2022-10-28] MEDS ORDERED: methaDONE HCL 10 MG TABLET (FOR DETOX USE ONLY) PO ONE (10:55)
[2022-10-28] MEDS ORDERED: cloNIDine HCL 0.1 MG TABLET PO PRN (11:11)
[2022-10-28] MEDS: PRENATAL VITAMINS W/ FOLIC ACID TABLET (FP) PO SCH (11:24)
[2022-10-28] MEDS: NICOTINE 14 MG/24 HOURS TOPICAL PATCH TD SCH (11:24)
[2022-10-28] MEDS: METHOCARBAMOL 500 MG TABLET PO PRN ×2 (11:26→22:35)
[2022-10-28 12:29] LABS: HEMATOCRIT 37.4 % (35.4-49); HEMOGLOBIN 12.1 GM/dL (11.7-16.9); MCH 31.6 pg (25.7-33.7); MCHC 32.5 g/dl (32.0-35.9); MEAN CELL VOLUME 97.3 fl (80-96); MEAN PLT VOLUME 9.4 fl (7.5-11.1); PLATELET COUNT 190 10^3/uL (134-434); RBC 3.84 M/mm3 (4.00-5.60); RDW 15.4 % (11.9-15.9); WHITE BLOOD COUNT 18.2 K/mm3 (4.0-10.0)
[2022-10-28 12:42] LABS: CALCIUM 8.6 mg/dL (8.5-10.1)
[2022-10-28 12:46] LABS: CREATININE 0.9 mg/dL (0.55-1.3)
[2022-10-28 12:48] LABS: BILIRUBIN,TOTAL 0.5 mg/dL (0.2-1); TOT PROT 5.5 g/dl (6.4-8.2)
[2022-10-28] MEDS ORDERED: NICOTINE 10 MG CARTRIDGE (INHALER) IH PRN (13:07)
[2022-10-28] MEDS: THIAMINE HCL 100 MG TABLET (FP) PO SCH (22:33)
[2022-10-28] MEDS: MELATONIN 5 MG TABLETS PO SCH (22:34)
[2022-10-29] MEDS: METHOCARBAMOL 500 MG TABLET PO PRN (05:49)
[2022-10-29] MEDS: diazePAM 5 MG TABLET PO SCH ×2 (05:49→17:40)
[2022-10-29] MEDS: NICOTINE 14 MG/24 HOURS TOPICAL PATCH TD SCH (10:16)
[2022-10-29] MEDS: PRENATAL VITAMINS W/ FOLIC ACID TABLET (FP) PO SCH (10:17)
[2022-10-29] MEDS: IBRUTINIB 420 MG PO SCH (17:40)
[2022-10-29] MEDS: MELATONIN 5 MG TABLETS PO SCH (22:12)
[2022-10-29] MEDS: THIAMINE HCL 100 MG TABLET (FP) PO SCH (22:13)
[2022-10-30] MEDS ORDERED: diazePAM 5 MG TABLET PO ONE (06:00)
[2022-10-30] MEDS: IBRUTINIB 420 MG PO SCH (08:29)
[2022-10-30 09:43] LABS: HEMATOCRIT 36.3 % (35.4-49); HEMOGLOBIN 11.7 GM/dL (11.7-16.9); MCH 30.2 pg (25.7-33.7); MCHC 32.3 g/dl (32.0-35.9); MEAN CELL VOLUME 93.5 fl (80-96); MEAN PLT VOLUME 9.3 fl (7.5-11.1); PLATELET COUNT 185 10^3/uL (134-434); RBC 3.88 M/mm3 (4.00-5.60); RDW 15.6 % (11.9-15.9)
[2022-10-30] MEDS ORDERED: methaDONE HCL 10 MG TABLET (FOR DETOX USE ONLY) PO ONE (10:00)
[2022-10-30] MEDS: PRENATAL VITAMINS W/ FOLIC ACID TABLET (FP) PO SCH (10:07)
[2022-10-30] MEDS: METHOCARBAMOL 500 MG TABLET PO PRN ×2 (10:08→22:15)
[2022-10-30] MEDS: NICOTINE 14 MG/24 HOURS TOPICAL PATCH TD SCH (10:13)
[2022-10-30 11:15] LABS: ANISOCYTOSIS 0; HELMET CELLS 0; HOWELL-JOLLY BODIES 0; MACROCYTOSIS 0; OVALOCYTE 0; ROULEAU 0; SICKELED CELLS 0; TARGET CELLS 0; TEAR DROP CELLS 0; TOXIC GRANULATION 0
[2022-10-30] MEDS ORDERED: diazePAM 5 MG TABLET PO PRN (11:15)
[2022-10-30] MEDS: THIAMINE HCL 100 MG TABLET (FP) PO SCH (22:15)
[2022-10-30] MEDS: MELATONIN 5 MG TABLETS PO SCH (22:15)
[2022-10-31] MEDS: IBRUTINIB 420 MG PO SCH (08:18)
[2022-10-31 10:14] VITALS: TEMP 97.9
[2022-10-31] MEDS: METHOCARBAMOL 500 MG TABLET PO PRN (10:31)
[2022-10-31] MEDS: PRENATAL VITAMINS W/ FOLIC ACID TABLET (FP) PO SCH (10:31)
[2022-10-31] MEDS: NICOTINE 14 MG/24 HOURS TOPICAL PATCH TD SCH (10:36)
[2022-10-31 12:58] VITALS: BP 132/88; PULSE 96; RESP 17
[2022-11-01] MEDS ORDERED: methaDONE HCL 10 MG TABLET (FOR DETOX USE ONLY) PO ONE (10:00)
== END 2022-10-31 14:28 | disposition home or self-care (01) | DRG 897 ==
LOC: YASAS 17:54 → Y6N 10-27 01:31
PROVIDERS: ADMIT Allergy & Immunology; ATTEND Surgery
PROC: HZ2ZZZZ Detoxification Services for Substance Abuse Treatment (ICD-10-PCS; principal; 2022-10-27)
DX: F10.230 Alcohol dependence with withdrawal, uncomplicated (principal); F14.20 Cocaine dependence, uncomplicated; C91.10 Chronic lymphocytic leukemia of B-cell type not having achieved remission; Z68.1 Body mass index [BMI] 19.9 or less, adult; F11.23 Opioid dependence with withdrawal; F17.210 Nicotine dependence, cigarettes, uncomplicated; R63.4 Abnormal weight loss
CPT/HCPCS: 36415; 80053; 85025; 85027; 86780; 87811; C9803-CS; Q0162; U0003; U0005

== ENCOUNTER 2022-11-03 17:23 | Inpatient (IN) | payer OTHER ==
[2022-11-03 19:14] VITALS: BMI 20.7
[2022-11-03] MEDS ORDERED: NALOXONE HCL (KLOXXADO) 8 MG SPRAY NS PRN (19:29)
[2022-11-03] MEDS ORDERED: POLYETHYLENE GLYCOL (HEALTHYLAX) 3350 17 GM PACKET PO PRN (19:29)
[2022-11-03] MEDS ORDERED: ONDANSETRON *ODT* 4 MG TABLET SL PRN (19:29)
[2022-11-03] MEDS ORDERED: MAG HYDROX/AL HYDROX/SIMETH 30 ML UNIT-DOSE CUP PO PRN (19:29)
[2022-11-03] MEDS ORDERED: BENZOCAINE/MENTHOL (CHLORASEPTIC ) LOZENGE MM PRN (19:29)
[2022-11-03] MEDS ORDERED: LOPERAMIDE HCL 2 MG CAPSULE PO PRN (19:29)
[2022-11-03] MEDS ORDERED: MAGNESIUM HYDROX 2400MG/30ML ORAL SUSPENSION 30 ML CUP PO PRN (19:29)
[2022-11-03] MEDS ORDERED: ACETAMINOPHEN 325 MG TABLET (FP) PO PRN (19:29)
[2022-11-03] MEDS ORDERED: DICYCLOMINE HCL 10 MG CAPSULE PO PRN (19:29)
[2022-11-03] MEDS ORDERED: hydrOXYzine PAMOATE 25 MG CAPSULE (FP) PO PRN (19:29)
[2022-11-03] MEDS ORDERED: ONDANSETRON *ODT* 4 MG TABLET ONE (21:46)
[2022-11-04] MEDS: PRENATAL VITAMINS W/ FOLIC ACID TABLET (FP) PO SCH (10:00)
[2022-11-04] MEDS ORDERED: methaDONE HCL 10 MG TABLET (FOR DETOX USE ONLY) PO ONE (11:45)
[2022-11-04] MEDS ORDERED: methaDONE HCL 10 MG TABLET (FOR DETOX USE ONLY) ONE (12:10)
[2022-11-04] MEDS: METHOCARBAMOL 500 MG TABLET PO PRN (12:29)
[2022-11-04] MEDS: MELATONIN 5 MG TABLETS PO SCH (22:07)
[2022-11-04] MEDS: THIAMINE HCL 100 MG TABLET (FP) PO SCH (22:07)
[2022-11-05] MEDS ORDERED: IBRUTINIB 420 MG PO SCH (08:00)
[2022-11-05] MEDS ORDERED: methaDONE HCL 10 MG TABLET (FOR DETOX USE ONLY) PO ONE (10:00)
[2022-11-05] MEDS: PRENATAL VITAMINS W/ FOLIC ACID TABLET (FP) PO SCH (10:28)
[2022-11-05] MEDS: METHOCARBAMOL 500 MG TABLET PO PRN ×2 (12:17→21:36)
[2022-11-05] MEDS: NICOTINE 10 MG CARTRIDGE (INHALER) IH PRN (12:20)
[2022-11-05] MEDS: cloNIDine HCL 0.1 MG TABLET PO PRN (21:35)
[2022-11-05] MEDS: THIAMINE HCL 100 MG TABLET (FP) PO SCH ×2 (21:35→23:25)
[2022-11-05] MEDS: MELATONIN 5 MG TABLETS PO SCH ×2 (21:36→23:25)
[2022-11-06] MEDS: METHOCARBAMOL 500 MG TABLET PO PRN ×2 (05:39→21:10)
[2022-11-06] MEDS: IBRUTINIB 420 MG PO SCH (08:59)
[2022-11-06] MEDS: PRENATAL VITAMINS W/ FOLIC ACID TABLET (FP) PO SCH (12:16)
[2022-11-06] MEDS: cloNIDine HCL 0.1 MG TABLET PO PRN (17:03)
[2022-11-06] MEDS: ONDANSETRON *ODT* 4 MG TABLET SL PRN (17:37)
[2022-11-06] MEDS: THIAMINE HCL 100 MG TABLET (FP) PO SCH (21:09)
[2022-11-06] MEDS: MELATONIN 5 MG TABLETS PO SCH (21:09)
[2022-11-06] MEDS: NICOTINE 10 MG CARTRIDGE (INHALER) IH PRN (21:11)
[2022-11-07] MEDS: ONDANSETRON *ODT* 4 MG TABLET SL PRN (06:13)
[2022-11-07] MEDS: IBRUTINIB 420 MG PO SCH (07:20)
[2022-11-07] MEDS: PRENATAL VITAMINS W/ FOLIC ACID TABLET (FP) PO SCH (09:39)
[2022-11-07] MEDS ORDERED: hydrOXYzine PAMOATE 25 MG CAPSULE (FP) PO ONE (17:45)
[2022-11-07] MEDS: METHOCARBAMOL 500 MG TABLET PO PRN (21:18)
[2022-11-07] MEDS: THIAMINE HCL 100 MG TABLET (FP) PO SCH (21:18)
[2022-11-07] MEDS: MELATONIN 5 MG TABLETS PO SCH (21:18)
[2022-11-08] MEDS: IBRUTINIB 420 MG PO SCH (07:24)
[2022-11-08] MEDS: PRENATAL VITAMINS W/ FOLIC ACID TABLET (FP) PO SCH (09:52)
[2022-11-08] MEDS ORDERED: BUPRENORPHINE/NALOXONE 2 MG/0.5 MG FILM PACKET SL ONE (14:20)
[2022-11-08] MEDS: THIAMINE HCL 100 MG TABLET (FP) PO SCH (21:13)
[2022-11-08] MEDS: SUVOREXANT 10 MG TABLET PO PRN (21:15)
[2022-11-09] MEDS: IBRUTINIB 420 MG PO SCH (09:00)
[2022-11-09] MEDS: PRENATAL VITAMINS W/ FOLIC ACID TABLET (FP) PO SCH (09:01)
[2022-11-09] MEDS: BUPRENORPHINE/NALOXONE 2 MG/0.5 MG FILM PACKET SL SCH (09:02)
[2022-11-09] MEDS: hydrOXYzine PAMOATE 25 MG CAPSULE (FP) PO PRN (18:12)
[2022-11-09] MEDS ORDERED: COLLOIDAL OATMEAL 1 BAR EACH TP PRN (18:44)
[2022-11-09] MEDS: THIAMINE HCL 100 MG TABLET (FP) PO SCH (21:08)
[2022-11-09] MEDS: SUVOREXANT 10 MG TABLET PO PRN (21:09)
[2022-11-10] MEDS: IBRUTINIB 420 MG PO SCH (07:39)
[2022-11-10] MEDS: PRENATAL VITAMINS W/ FOLIC ACID TABLET (FP) PO SCH (09:43)
[2022-11-10] MEDS: BUPRENORPHINE/NALOXONE 2 MG/0.5 MG FILM PACKET SL SCH (09:44)
[2022-11-10] MEDS: NICOTINE 10 MG CARTRIDGE (INHALER) IH PRN (12:39)
[2022-11-10] MEDS: THIAMINE HCL 100 MG TABLET (FP) PO SCH (21:15)
[2022-11-10] MEDS: hydrOXYzine PAMOATE 25 MG CAPSULE (FP) PO PRN (21:16)
[2022-11-10] MEDS: ACETAMINOPHEN 325 MG TABLET (FP) PO PRN (21:16)
[2022-11-10] MEDS: SUVOREXANT 10 MG TABLET PO PRN (21:18)
[2022-11-11] MEDS: IBRUTINIB 420 MG PO SCH (07:10)
[2022-11-11] MEDS: PRENATAL VITAMINS W/ FOLIC ACID TABLET (FP) PO SCH (09:46)
[2022-11-11] MEDS: BUPRENORPHINE/NALOXONE 2 MG/0.5 MG FILM PACKET SL SCH (09:46)
[2022-11-11] MEDS: ACETAMINOPHEN 325 MG TABLET (FP) PO PRN (16:50)
[2022-11-11] MEDS: hydrOXYzine PAMOATE 25 MG CAPSULE (FP) PO PRN (21:13)
[2022-11-11] MEDS: THIAMINE HCL 100 MG TABLET (FP) PO SCH (21:13)
[2022-11-11] MEDS: SUVOREXANT 10 MG TABLET PO PRN (21:15)
[2022-11-12] MEDS: IBRUTINIB 420 MG PO SCH (08:46)
[2022-11-12] MEDS: PRENATAL VITAMINS W/ FOLIC ACID TABLET (FP) PO SCH (09:37)
[2022-11-12] MEDS: BUPRENORPHINE/NALOXONE 2 MG/0.5 MG FILM PACKET SL SCH (09:37)
[2022-11-12] MEDS: THIAMINE HCL 100 MG TABLET (FP) PO SCH (21:24)
[2022-11-12] MEDS: hydrOXYzine PAMOATE 25 MG CAPSULE (FP) PO PRN (21:24)
[2022-11-12] MEDS: SUVOREXANT 10 MG TABLET PO PRN (21:25)
[2022-11-13 06:53] VITALS: BP 128/78; PULSE 77; RESP 16; TEMP 98
[2022-11-13] MEDS: IBRUTINIB 420 MG PO SCH (07:12)
[2022-11-13] MEDS: BUPRENORPHINE/NALOXONE 2 MG/0.5 MG FILM PACKET SL SCH (09:03)
[2022-11-13] MEDS: PRENATAL VITAMINS W/ FOLIC ACID TABLET (FP) PO SCH (09:04)
== END 2022-11-13 09:50 | disposition home or self-care (01) | DRG 895 ==
LOC: YASAS 17:23 → Y6N 11-04 11:51 → Y5N 11-06 18:12
PROVIDERS: ADMIT Allergy & Immunology; ATTEND Psychiatry & Neurology Pain Medicine
PROC: HZ42ZZZ Group Counseling for Substance Abuse Treatment, Cognitive-Behavioral (ICD-10-PCS; principal; 2022-11-04)
DX: F11.20 Opioid dependence, uncomplicated (principal); F19.282 Other psychoactive substance dependence with psychoactive substance-induced sleep disorder; C91.10 Chronic lymphocytic leukemia of B-cell type not having achieved remission; F10.20 Alcohol dependence, uncomplicated; F17.210 Nicotine dependence, cigarettes, uncomplicated; F19.24 Other psychoactive substance dependence with psychoactive substance-induced mood disorder; F41.1 Generalized anxiety disorder; F32.A Depression, unspecified; Z56.0 Unemployment, unspecified; Z59.00 Homelessness unspecified
CPT/HCPCS: C9803-CS; Q0162; U0003; U0005

== ENCOUNTER 2023-05-17 10:20 | Inpatient (IN) | payer OTHER ==
[2023-05-17 10:41] VITALS: BMI 20.2
[2023-05-17] MEDS ORDERED: NALOXONE (NARCAN) HCL 4 MG/0.1 ML SPRAY NS PRN (11:11)
[2023-05-17] MEDS ORDERED: POLYETHYLENE GLYCOL (HEALTHYLAX) 3350 17 GM PACKET PO PRN (11:23)
[2023-05-17] MEDS ORDERED: BENZOCAINE/MENTHOL (CHLORASEPTIC ) LOZENGE MM PRN (11:23)
[2023-05-17] MEDS ORDERED: LOPERAMIDE HCL 2 MG CAPSULE PO PRN (11:23)
[2023-05-17] MEDS ORDERED: BENZONATATE 200 MG CAPSULE PO PRN (11:23)
[2023-05-17] MEDS ORDERED: DICYCLOMINE HCL 10 MG CAPSULE PO PRN (11:23)
[2023-05-17] MEDS ORDERED: guaiFENesin 600 MG TABLET.ER (FP) PO PRN (11:23)
[2023-05-17] MEDS ORDERED: NICOTINE POLACRILEX 2 MG GUM BUC PRN (11:23)
[2023-05-17] MEDS ORDERED: NALOXONE HCL 0.4 MG/ML VIAL IM PRN (11:23)
[2023-05-17] MEDS ORDERED: ONDANSETRON *ODT* 4 MG TABLET SL PRN (11:23)
[2023-05-17] MEDS ORDERED: P-EPHED 60MG/TRIPROLIDI 2.5MG TABLET PO PRN (11:23)
[2023-05-17] MEDS ORDERED: MAGNESIUM HYDROX 2400MG/30ML ORAL SUSPENSION 30 ML CUP PO PRN (11:23)
[2023-05-17] MEDS ORDERED: MAG HYDROX/AL HYDROX/SIMETH 30 ML UNIT-DOSE CUP PO PRN (11:23)
[2023-05-17] MEDS ORDERED: ACETAMINOPHEN 325 MG TABLET (FP) PO PRN (11:23)
[2023-05-17] MEDS ORDERED: methaDONE HCL 10 MG TABLET (FOR DETOX USE ONLY) PO ONE (11:25)
[2023-05-17] MEDS ORDERED: methaDONE HCL 10 MG TABLET (FOR DETOX USE ONLY) ONE (12:05)
[2023-05-17] MEDS: hydrOXYzine PAMOATE 25 MG CAPSULE (FP) PO PRN (12:51)
[2023-05-17] MEDS: METHOCARBAMOL 500 MG TABLET PO PRN (12:51)
[2023-05-17] MEDS: cloNIDine HCL 0.1 MG TABLET PO PRN ×2 (17:15→22:37)
[2023-05-17] MEDS: MELATONIN 5 MG TABLETS PO SCH (22:35)
[2023-05-17] MEDS: THIAMINE HCL 100 MG TABLET (FP) PO SCH (22:36)
[2023-05-18] MEDS: PRENATAL VITAMINS W/ FOLIC ACID TABLET (FP) PO SCH (10:22)
[2023-05-18] MEDS: METHOCARBAMOL 500 MG TABLET PO PRN ×2 (10:22→22:37)
[2023-05-18 10:28] LABS: HEMATOCRIT 38.1 % (35.4-49); HEMOGLOBIN 12.1 GM/dL (11.7-16.9); MCH 29.3 pg (25.7-33.7); MCHC 31.7 g/dl (32.0-35.9); MEAN CELL VOLUME 92.5 fl (80-96); MEAN PLT VOLUME 8.5 fl (7.5-11.1); PLATELET COUNT 140 10^3/uL (134-434); RBC 4.12 M/mm3 (4.00-5.60); RDW 15.7 % (11.9-15.9); WHITE BLOOD COUNT 29.7 K/mm3 (4.0-10.0)
[2023-05-18 10:45] LABS: POTASSIUM 4.2 mmol/L (3.5-5.1)
[2023-05-18 10:52] LABS: ALBUMIN 3.3 g/dl (3.4-5.0); BLOOD UREA NITROGEN 15.4 mg/dL (7-18); CALCIUM 8.9 mg/dL (8.5-10.1)
[2023-05-18 10:55] LABS: CREATININE 0.7 mg/dL (0.55-1.3)
[2023-05-18 10:57] LABS: BILIRUBIN,TOTAL 0.2 mg/dL (0.2-1); TOT PROT 5.6 g/dl (6.4-8.2)
[2023-05-18] MEDS: hydrOXYzine PAMOATE 25 MG CAPSULE (FP) PO PRN (22:37)
[2023-05-18] MEDS: cloNIDine HCL 0.1 MG TABLET PO PRN (22:37)
[2023-05-18] MEDS: MELATONIN 5 MG TABLETS PO SCH (22:37)
[2023-05-18] MEDS: THIAMINE HCL 100 MG TABLET (FP) PO SCH (22:38)
[2023-05-19] MEDS ORDERED: methaDONE HCL 10 MG TABLET (FOR DETOX USE ONLY) PO ONE (10:00)
[2023-05-19] MEDS: METHOCARBAMOL 500 MG TABLET PO PRN ×2 (10:09→22:16)
[2023-05-19] MEDS: PRENATAL VITAMINS W/ FOLIC ACID TABLET (FP) PO SCH (10:09)
[2023-05-19] MEDS: hydrOXYzine PAMOATE 25 MG CAPSULE (FP) PO PRN ×2 (10:09→22:17)
[2023-05-19 13:14] LABS: HEMATOCRIT 37.7 % (35.4-49); HEMOGLOBIN 12.4 GM/dL (11.7-16.9); MCH 30.1 pg (25.7-33.7); MCHC 32.9 g/dl (32.0-35.9); MEAN CELL VOLUME 91.6 fl (80-96); MEAN PLT VOLUME 8.6 fl (7.5-11.1); PLATELET COUNT 148 10^3/uL (134-434); RBC 4.11 M/mm3 (4.00-5.60); RDW 16.2 % (11.9-15.9)
[2023-05-19 13:28] VITALS: RESP 17
[2023-05-19 13:44] LABS: WHITE BLOOD COUNT 34.8 K/mm3 (4.0-10.0)
[2023-05-19 14:28] LABS: ANISOCYTOSIS 0; HELMET CELLS 0; HOWELL-JOLLY BODIES 0; MACROCYTOSIS 0; OVALOCYTE 0; ROULEAU 0; SICKELED CELLS 0; TARGET CELLS 0; TEAR DROP CELLS 0; TOXIC GRANULATION 0
[2023-05-19] MEDS: MELATONIN 5 MG TABLETS PO SCH (22:15)
[2023-05-19] MEDS: THIAMINE HCL 100 MG TABLET (FP) PO SCH (22:15)
[2023-05-19] MEDS: cloNIDine HCL 0.1 MG TABLET PO PRN (22:16)
[2023-05-20 09:14] VITALS: BP 135/95; PULSE 86; TEMP 97.8
[2023-05-20] MEDS: PRENATAL VITAMINS W/ FOLIC ACID TABLET (FP) PO SCH (10:08)
[2023-05-20] MEDS: hydrOXYzine PAMOATE 25 MG CAPSULE (FP) PO PRN (10:08)
[2023-05-20] MEDS: METHOCARBAMOL 500 MG TABLET PO PRN (10:08)
[2023-05-21] MEDS ORDERED: methaDONE HCL 10 MG TABLET (FOR DETOX USE ONLY) PO ONE (10:00)
== END 2023-05-20 11:54 | disposition left against medical advice (07) | DRG 894 ==
LOC: YASAS 10:20 → Y6N 11:43
PROVIDERS: ADMIT Allergy & Immunology; ATTEND Surgery
PROC: HZ2ZZZZ Detoxification Services for Substance Abuse Treatment (ICD-10-PCS; principal; 2023-05-17)
DX: F11.23 Opioid dependence with withdrawal (principal); F12.20 Cannabis dependence, uncomplicated; F17.210 Nicotine dependence, cigarettes, uncomplicated; F19.24 Other psychoactive substance dependence with psychoactive substance-induced mood disorder; D72.828 Other elevated white blood cell count; Z85.6 Personal history of leukemia; R63.4 Abnormal weight loss; Z68.20 Body mass index [BMI] 20.0-20.9, adult; Z88.6 Allergy status to analgesic agent
CPT/HCPCS: 36415; 80053; 85025; 85027; 86780; 87635; 87811